=== PATIENT | male | born 1945 | race Caucasian/White ===

== ENCOUNTER 2019-09-19 05:53 | Inpatient (IN) ==
--- NOTE | 2019-08-23 12:09 | PAT Medication Instructions ---
Medication Instructions Date of Service August 23, 2019 Home Medications Vitamin D 1 tab PO QAM acetaminophen [Tylenol Extra Strength] 1,000 mg PO Q6H PRN aspirin [Aspir-81] 81 mg PO QPM calcium polycarbophil [Fiber-Tabs] 1,250 mg PO QPM cholecalciferol (vitamin D3) [Vitamin D3] 5,000 unit PO QAM citalopram [Celexa] 10 mg PO QAM cyclobenzaprine 10 mg PO HS dexlansoprazole [Dexilant] 60 mg PO QAM ibuprofen [Advil] 400 mg PO QID PRN losartan 100 mg PO QPM metoprolol succinate [Toprol XL] 25 mg PO QPM oxybutynin chloride 5 mg PO QAM rosuvastatin 20 mg PO QPM ASK your surgeon for instructions ibuprofen [Advil] 400 mg PO QID PRN DO NOT take the morning of surgery Vitamin D 1 tab PO QAM cholecalciferol (vitamin D3) [Vitamin D3] 5,000 unit PO QAM oxybutynin chloride 5 mg PO QAM Take morning of surgery With a small sip of water, OTHERWISE NOTHING TO EAT OR DRINK AFTER MIDNIGHT: acetaminophen [Tylenol Extra Strength] 1,000 mg PO Q6H PRN (okay to take up to 4 hours prior to surgery if needed) citalopram [Celexa] 10 mg PO QAM dexlansoprazole [Dexilant] 60 mg PO QAM Take evening before surgery acetaminophen [Tylenol Extra Strength] 1,000 mg PO Q6H PRN (if needed) aspirin [Aspir-81] 81 mg PO QPM calcium polycarbophil [Fiber-Tabs] 1,250 mg PO QPM cyclobenzaprine 10 mg PO HS losartan 100 mg PO QPM metoprolol succinate [Toprol XL] 25 mg PO QPM rosuvastatin 20 mg PO QPM Other Notes If you have any questions please call us at [phone] or [phone] or [phone] or [phone]
--- NOTE | 2019-08-24 10:27 | Anesthesiology Consultation ---
Date of Service August 24, 2019 Assessment & Plan (1) Encounter for pre-operative examination: - Awaiting review preop testing (labs, EKG, CXR). - Awaiting surgeon-ordered PCP preop evaluation scheduled 08/22 ([facility]). - Awaiting surgeon-ordered cardiology preop evaluation scheduled 09/05 ([facility]). Chart Review Chart Review: Patient seen in Pre Admission Testing Teaching & Discussion Pre-Anesthesia Teaching/Discussion Notes: Instructed NPO after midnight before surgery,except medications with 15 cc of water. Medication instructions provided according to the PAT guidelines. History Surgery Operation Date: 09/19/19 11:05 Proposed Procedures p Right Total Posterior Hip Arthroplasty - Pipo Drake, Height/Weight Height: 5 ft 8 in Weight: 124.4 kg Allergies Allergy/AdvReac Type Severity Reaction Status Date / Time amoxicillin Allergy Unknown HIVES, Verified 08/24/19 10:31 THROAT/TONGUE SWELLING atorvastatin [From Lipitor] AdvReac Unknown MUSCLE Verified 08/05/19 10:02 ACHES Medications Home Medications Medication Instructions Recorded Confirmed Last Taken Vitamin D 1 tab PO QAM 08/05/19 08/05/19 Unknown acetaminophen [Tylenol Extra 1,000 mg PO Q6H PRN 08/05/19 08/05/19 Unknown Strength] aspirin [Aspir-81] 81 mg PO QPM 08/05/19 08/05/19 Unknown calcium polycarbophil [Fiber-Tabs] 1,250 mg PO QPM 08/05/19 08/05/19 Unknown cholecalciferol (vitamin D3) 5,000 unit PO QAM 08/05/19 08/05/19 Unknown [Vitamin D3] citalopram [Celexa] 10 mg PO QAM 08/05/19 08/05/19 Unknown cyclobenzaprine 10 mg PO HS 08/05/19 08/05/19 Unknown dexlansoprazole [Dexilant] 60 mg PO QAM 08/05/19 08/05/19 Unknown ibuprofen [Advil] 400 mg PO QID PRN 08/05/19 08/05/19 Unknown losartan 100 mg PO QPM 08/05/19 08/05/19 Unknown metoprolol succinate [Toprol XL] 25 mg PO QPM 08/05/19 08/05/19 Unknown oxybutynin chloride 5 mg PO QAM 08/05/19 08/05/19 Unknown rosuvastatin 20 mg PO QPM 08/05/19 08/05/19 Unknown Past Medical History Medical History CAD (coronary artery disease) stents x 3 (2008) GERD (gastroesophageal reflux disease) controlled Hiatal hernia Hyperlipidemia Hypertension Morbid obesity Osteoarthritis Prostatitis HX Sciatica Exercise / Class Metabolic Activity III < 4 Walking/Shop/Light housework (uses cane PRN) Past Family History Family History Mother Family history of diabetes mellitus Father Family history of diabetes mellitus Past Surgical History Surgical History H/O foot surgery 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 Patient denies chest pain, shortness of breath, cough, wheezing, palpitations. Physical Exam Vital Signs VITALS BP 126/81 P 83 TEMP 97.9 SP02 93%RA RESP 18 PHYSICAL Full neck and c-spine range of motion. Full TMJ range of motion. TMD 3 finger breaths Mallampati Score 2 Dentition: several missing sides/molars, chipped teeth on upper front Lungs: clear throughout to auscultation Cardiac: regular rate and rhythm, no murmurs noted Spine: normal Carotid arteries: negative bruit Extremities: no edema Testing Laboratory Results 08/24/19 10:40 08/24/19 10:40 PT 10.3 Seconds (9.0-12.0) 08/24/19 10:40 INR 1.0 (0.9-1.1) 08/24/19 10:40 APTT 25.1 Seconds (21.0-31.0) 08/24/19 10:40 Hemoglobin A1c 7.1 % (4.5-5.6) H 08/24/19 10:40 Urine Color Dark Yellow 08/24/19 Unknown Urine Appearance Cloudy (Clear) A 08/24/19 Unknown Urine pH 5.0 (4.5-7.5) 08/24/19 Unknown Ur Specific [place] 1.023 (1.000-1.030) 08/24/19 Unknown Urine Protein Trace (Negative) H 08/24/19 Unknown Urine Glucose (UA) Negative (Negative) 08/24/19 Unknown Urine Ketones Trace (Negative) H 08/24/19 Unknown Urine Nitrite Negative (Negative) 08/24/19 Unknown Ur Leukocyte Esterase Negative (Negative) 08/24/19 Unknown Urine WBC (Auto) 1-5 /hpf (0-5) 08/24/19 Unknown Urine RBC (Auto) 5-10 /hpf (0-4) H 08/24/19 Unknown U Hyaline Cast (Auto) 1-5 /lpf (0-5) 08/24/19 Unknown U Epithel Cells (Auto) 20-30 /lpf (0-5) H 08/24/19 Unknown Urine Bacteria (Auto) Negative (Negative) 08/24/19 Unknown Blood Type O Positive 08/24/19 10:40 Antibody Screen NEGATIVE 08/24/19 10:40 Electrocardiogram Date: 08/24/19 Findings: + NSR @ (81/min)
--- NOTE | 2019-08-24 11:05 | XRay Report ---
XR chest Pre-admission PA/Lat CLINICAL HISTORY: Preoperative chest COMPARISON STUDY: No previous studies for comparison. FINDINGS: The heart is at the upper limits of normal in size. There are prominent cardiophrenic angle fat pads. There is no failure. There is no lobar consolidation. There are no large pleural effusions .[ IMPRESSION: No active disease in the chest. Electronically signed by: Camden Davey M.D. 08/24/2019 11:04 AM
[2019-08-24 12:05] LABS: Basophils # (auto) 0.06 K/uL (0-0.2); Basophils % (auto) 0.5 %; Eosinophils # (auto) 0.18 K/uL (0-0.5); Eosinophils % (auto) 1.6 %; Hemoglobin 16.1 g/dL (14.0-18.0); Immature Granulocytes # (auto) 0.14 K/uL (0.00-0.02); Immature Granulocytes % (auto) 1.2 %; Lymphocytes # (auto) 2.11 K/uL (1.2-3.4); Lymphocytes % (auto) 18.5 %; Mean Corpuscular Hemoglobin 30.7 pg (25-34); Mean Corpuscular Hgb Conc 34.3 g/dL (32-36); Mean Corpuscular Volume 89.5 fL (80-100); Mean Platelet Volume 9.9 fL (7.4-10.4); Monocytes # (auto) 0.97 K/uL (0.11-0.59); Monocytes % (auto) 8.5 %; Neutrophils # (auto) 7.95 K/uL (1.4-6.5); Neutrophils % (auto) 69.7 %; Platelet Count 257 K/uL (130-400); RDW Coefficient of Variation 14.5 % (11.5-14.5); RDW Standard Deviation 47.4 fL (36.4-46.3); Red Blood Count 5.25 M/uL (4.7-6.1); White Blood Count 11.41 K/uL (4.8-10.8)
[2019-08-24 12:10] LABS: Appearance Urine Cloudy (Clear); Bacteria Urine Automated Negative (Negative); Bilirubin Urine Negative (Negative); Blood Urine Negative (Negative); Color Urine Dark Yellow; Epithelial Cell Urine Auto 20-30 /lpf (0-5); Glucose Urine UA Negative (Negative); Ketones Urine Trace (Negative); Leukocyte Esterase Urine Negative (Negative); Nitrite Urine Negative (Negative); Protein Urine Trace (Negative); Specific Gravity Urine 1.023 (1.000-1.030); Urobilinogen Urine Negative (Negative)
[2019-08-24 12:13] LABS: Albumin Level 3.2 gm/dl (3.4-5.0); BUN Creatinine Ratio 15.3 (10-20); Calcium 9.6 mg/dl (8.5-10.1); Creatinine Clr Calc Pharmacy 67.6 ml/min; Est GFR (African American) 65.8; Est GFR (Non-African American) 56.8; Potassium 4.4 mmol/L (3.5-5.1)
[2019-08-24 12:22] LABS: Partial Thromboplastin Ratio 0.9; Partial Thromboplastin Time 25.1 Seconds (21.0-31.0); Prothrombin Time 10.3 Seconds (9.0-12.0)
[2019-08-24 12:49] LABS: Estimated Average Glucose 157 mg/dl; Hemoglobin A1C 7.1 % (4.5-5.6)
--- NOTE | 2019-08-25 09:38 | Anesthesiology Consultation ---
Date of Service August 25, 2019 History Surgery Operation Date: 09/19/19 11:05 Proposed Procedures p Right Total Posterior Hip Arthroplasty - Pipo Drake, Height/Weight Height: 5 ft 8 in Weight: 124.4 kg Allergies Allergy/AdvReac Type Severity Reaction Status Date / Time amoxicillin Allergy Unknown HIVES, Verified 08/24/19 10:31 THROAT/TONGUE SWELLING atorvastatin [From Lipitor] AdvReac Unknown MUSCLE Verified 08/05/19 10:02 ACHES Medications Home Medications Medication Instructions Recorded Confirmed Last Taken Vitamin D 1 tab PO QAM 08/05/19 08/05/19 Unknown acetaminophen [Tylenol Extra 1,000 mg PO Q6H PRN 08/05/19 08/05/19 Unknown Strength] aspirin [Aspir-81] 81 mg PO QPM 08/05/19 08/05/19 Unknown calcium polycarbophil [Fiber-Tabs] 1,250 mg PO QPM 08/05/19 08/05/19 Unknown cholecalciferol (vitamin D3) 5,000 unit PO QAM 08/05/19 08/05/19 Unknown [Vitamin D3] citalopram [Celexa] 10 mg PO QAM 08/05/19 08/05/19 Unknown cyclobenzaprine 10 mg PO HS 08/05/19 08/05/19 Unknown dexlansoprazole [Dexilant] 60 mg PO QAM 08/05/19 08/05/19 Unknown ibuprofen [Advil] 400 mg PO QID PRN 08/05/19 08/05/19 Unknown losartan 100 mg PO QPM 08/05/19 08/05/19 Unknown metoprolol succinate [Toprol XL] 25 mg PO QPM 08/05/19 08/05/19 Unknown oxybutynin chloride 5 mg PO QAM 08/05/19 08/05/19 Unknown rosuvastatin 20 mg PO QPM 08/05/19 08/05/19 Unknown Past Medical History Medical History CAD (coronary artery disease) stents x 3 (2008) GERD (gastroesophageal reflux disease) controlled Hiatal hernia Hyperlipidemia Hypertension Morbid obesity Osteoarthritis Prostatitis HX Sciatica Past Family History Family History Mother Family history of diabetes mellitus Father Family history of diabetes mellitus Past Surgical History Surgical History H/O foot surgery 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 H/O knee surgery OPEN LEFT KNEE History of cardiac cath 2009= 3 STENTS 2016= NO STENTS History of cholecystectomy History of colonoscopy History of esophagogastroduodenoscopy (EGD) Social History Smoking Status: Never smoker Do You Dip or Chew Tobacco: No Hx Alcohol Use: No Hx Substance Use: No Testing Laboratory Results 08/24/19 10:40 08/24/19 10:40 PT 10.3 Seconds (9.0-12.0) 08/24/19 10:40 INR 1.0 (0.9-1.1) 08/24/19 10:40 APTT 25.1 Seconds (21.0-31.0) 08/24/19 10:40 Hemoglobin A1c 7.1 % (4.5-5.6) H 08/24/19 10:40 Urine Color Dark Yellow 08/24/19 Unknown Urine Appearance Cloudy (Clear) A 08/24/19 Unknown Urine pH 5.0 (4.5-7.5) 08/24/19 Unknown Ur Specific [place] 1.023 (1.000-1.030) 08/24/19 Unknown Urine Protein Trace (Negative) H 08/24/19 Unknown Urine Glucose (UA) Negative (Negative) 08/24/19 Unknown Urine Ketones Trace (Negative) H 08/24/19 Unknown Urine Nitrite Negative (Negative) 08/24/19 Unknown Ur Leukocyte Esterase Negative (Negative) 08/24/19 Unknown Urine WBC (Auto) 1-5 /hpf (0-5) 08/24/19 Unknown Urine RBC (Auto) 5-10 /hpf (0-4) H 08/24/19 Unknown U Hyaline Cast (Auto) 1-5 /lpf (0-5) 08/24/19 Unknown U Epithel Cells (Auto) 20-30 /lpf (0-5) H 08/24/19 Unknown Urine Bacteria (Auto) Negative (Negative) 08/24/19 Unknown Blood Type O Positive 08/24/19 10:40 Antibody Screen NEGATIVE 08/24/19 10:40 Chest X-Ray Date: 08/24/19 Findings: + NAD
--- NOTE | 2019-08-25 09:44 | Anesthesiology Consultation ---
Date of Service August 25, 2019 History Surgery Operation Date: 09/19/19 11:05 Proposed Procedures p Right Total Posterior Hip Arthroplasty - Pipo Drake, Height/Weight Height: 5 ft 8 in Weight: 124.4 kg Allergies Allergy/AdvReac Type Severity Reaction Status Date / Time amoxicillin Allergy Unknown HIVES, Verified 08/24/19 10:31 THROAT/TONGUE SWELLING atorvastatin [From Lipitor] AdvReac Unknown MUSCLE Verified 08/05/19 10:02 ACHES Medications Home Medications Medication Instructions Recorded Confirmed Last Taken Vitamin D 1 tab PO QAM 08/05/19 08/05/19 Unknown acetaminophen [Tylenol Extra 1,000 mg PO Q6H PRN 08/05/19 08/05/19 Unknown Strength] aspirin [Aspir-81] 81 mg PO QPM 08/05/19 08/05/19 Unknown calcium polycarbophil [Fiber-Tabs] 1,250 mg PO QPM 08/05/19 08/05/19 Unknown cholecalciferol (vitamin D3) 5,000 unit PO QAM 08/05/19 08/05/19 Unknown [Vitamin D3] citalopram [Celexa] 10 mg PO QAM 08/05/19 08/05/19 Unknown cyclobenzaprine 10 mg PO HS 08/05/19 08/05/19 Unknown dexlansoprazole [Dexilant] 60 mg PO QAM 08/05/19 08/05/19 Unknown ibuprofen [Advil] 400 mg PO QID PRN 08/05/19 08/05/19 Unknown losartan 100 mg PO QPM 08/05/19 08/05/19 Unknown metoprolol succinate [Toprol XL] 25 mg PO QPM 08/05/19 08/05/19 Unknown oxybutynin chloride 5 mg PO QAM 08/05/19 08/05/19 Unknown rosuvastatin 20 mg PO QPM 08/05/19 08/05/19 Unknown Past Medical History Medical History CAD (coronary artery disease) stents x 3 (2008) GERD (gastroesophageal reflux disease) controlled Hiatal hernia Hyperlipidemia Hypertension Morbid obesity Osteoarthritis Prostatitis HX Sciatica Past Family History Family History Mother Family history of diabetes mellitus Father Family history of diabetes mellitus Past Surgical History Surgical History H/O foot surgery 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 H/O knee surgery OPEN LEFT KNEE History of cardiac cath 2009= 3 STENTS 2016= NO STENTS History of cholecystectomy History of colonoscopy History of esophagogastroduodenoscopy (EGD) Social History Smoking Status: Never smoker Do You Dip or Chew Tobacco: No Hx Alcohol Use: No Hx Substance Use: No Testing Laboratory Results 08/24/19 10:40 08/24/19 10:40 PT 10.3 Seconds (9.0-12.0) 08/24/19 10:40 INR 1.0 (0.9-1.1) 08/24/19 10:40 APTT 25.1 Seconds (21.0-31.0) 08/24/19 10:40 Hemoglobin A1c 7.1 % (4.5-5.6) H 08/24/19 10:40 Urine Color Dark Yellow 08/24/19 Unknown Urine Appearance Cloudy (Clear) A 08/24/19 Unknown Urine pH 5.0 (4.5-7.5) 08/24/19 Unknown Ur Specific [place] 1.023 (1.000-1.030) 08/24/19 Unknown Urine Protein Trace (Negative) H 08/24/19 Unknown Urine Glucose (UA) Negative (Negative) 08/24/19 Unknown Urine Ketones Trace (Negative) H 08/24/19 Unknown Urine Nitrite Negative (Negative) 08/24/19 Unknown Ur Leukocyte Esterase Negative (Negative) 08/24/19 Unknown Urine WBC (Auto) 1-5 /hpf (0-5) 08/24/19 Unknown Urine RBC (Auto) 5-10 /hpf (0-4) H 08/24/19 Unknown U Hyaline Cast (Auto) 1-5 /lpf (0-5) 08/24/19 Unknown U Epithel Cells (Auto) 20-30 /lpf (0-5) H 08/24/19 Unknown Urine Bacteria (Auto) Negative (Negative) 08/24/19 Unknown Blood Type O Positive 08/24/19 10:40 Antibody Screen NEGATIVE 08/24/19 10:40 Electrocardiogram Date: 08/24/19 Findings: + NSR @ (81/min) Chest X-Ray Date: 08/24/19 Findings: + NAD
--- NOTE | 2019-09-18 10:23 | History & Physical Report ---
Date of Service September 18, 2019 Assessment & Plan (1) Degenerative joint disease of right hip: I have indicated the patient for right total hip replacement. The risks, benefits and complications of surgery were explained to the patient which include but not limited to infection, acute blood loss, DVT/PE, injury to nerves, vessels, bone, soft tissue, arthrofibrosis, chronic pain, failure of the prosthesis, hip dislocation, leg length discrepancy, need for additional surgery, cardiac and pulmonary events and . The patient wished to proceed with surgery and informed consent was obtained at this time. We will plan for 81mg ASA BID post-operatively for DVT prophylaxis. Upon discharge the patient will be discharged home with home health services. Appropriate clearances by PCP, cardiology were obtained. Patient is asymptomatic for UTI. History of Present Illness Chief Complaint: Right hip pain/djd Primary Care Provider: Chelsea Nash DO The patient is a 71 year old male who presents with complaints of severe right hip pain and DJD. The patient has failed outpatient conservative treatments to this point which included NSAIDs, IA corticosteroid injection, home exercise, walking program. The patient's pain and limited function have progressed to the point where they severely hinder their activities of daily living and they no longer tolerate exercise programs. They are requesting to proceed with total hip replacement surgery. Allergies Allergy/AdvReac Type Severity Reaction Status Date / Time amoxicillin Allergy Unknown HIVES, Verified 09/19/19 06:18 THROAT/TONGUE SWELLING atorvastatin [From Lipitor] AdvReac Unknown MUSCLE Verified 09/19/19 06:18 ACHES Home Medications Home Medications Medication Instructions Recorded Confirmed Type Vitamin D 1 tab PO QAM 08/05/19 09/19/19 History acetaminophen [Tylenol Extra 1,000 mg PO Q6H PRN 08/05/19 09/19/19 History Strength] aspirin [Aspir-81] 81 mg PO QPM 08/05/19 09/19/19 History calcium polycarbophil [Fiber-Tabs] 1,250 mg PO QPM 08/05/19 09/19/19 History cholecalciferol (vitamin D3) 5,000 unit PO QAM 08/05/19 09/19/19 History [Vitamin D3] citalopram [Celexa] 10 mg PO QAM 08/05/19 09/19/19 History cyclobenzaprine 10 mg PO HS 08/05/19 09/19/19 History dexlansoprazole [Dexilant] 60 mg PO QAM 08/05/19 09/19/19 History ibuprofen [Advil] 400 mg PO QID PRN 08/05/19 09/19/19 History losartan 100 mg PO QPM 08/05/19 09/19/19 History metoprolol succinate [Toprol XL] 25 mg PO QPM 08/05/19 09/19/19 History oxybutynin chloride 5 mg PO QAM 08/05/19 09/19/19 History rosuvastatin 20 mg PO QPM 08/05/19 09/19/19 History Past Med/Surg History Family History Mother Family history of diabetes mellitus Father Family history of diabetes mellitus Social History Preferred Language: Tongan Communication Ability: Effective Heel Blacker Required: No Beliefs That Will Affect Care: None Current Living Situation: Spouse Other Information That Helps Us Care for You: No Feels Safe at Home: Yes Safety Concerns: Feels Safe At This Time Smoking Status: Never smoker Do You Dip or Chew Tobacco: No ; Second Hand Exposure: No ; Hx Alcohol Use: No Hx Substance Use: No Review of Systems Review of Systems: All systems reviewed & are unremarkable except as noted in HPI & below Constitutional: as per Subjective / HPI Physical Exam Physical Exam: RLE NVSI +EHL/FHL/TA/GS SILT grossly, +2 DP pulse, compartments soft NT, painful limited ROM of the hip, antalgic gait. Constitutional: WD/WN, vitals as above Eyes: PERRL, conjunctivae normal, anicteric sclerae ENMT: external ear and nose normal, oropharynx normal Neck: trachea midline, no thyromegaly Respiratory: normal respiratory effort, lungs clear to auscultation Cardiovascular: RRR, no murmur, no edema Gastrointestinal (Abdomen): normal bowel sounds, soft, nontender, no hepatosplenomegaly Musculoskeletal: no cyanosis or clubbing, extremities motor strength 5/5 Skin: no rashes, warm and dry Neurologic: patellar DTR's 2+ bilat, sensation intact Psychiatric: A+Ox3, euthymic affect Lymphatic: no cervical or axillary lymphadenopathy Results & Data Diagnostic Findings Multiple views of the hip demonstrates severe DJD with complete loss of the joint space. +osteophytes, +sclerosis, +subchondral cysts.
[2019-09-19] MEDS ORDERED: METOCLOPRAMIDE HCL 10 MG TABLET PO SCH (06:00)
[2019-09-19] MEDS ORDERED: CeleBREX 200 MG CAP PO SCH (06:00)
[2019-09-19] MEDS ORDERED: CLINDAMYCIN 600 MG/54 ML BAG IV SCH (06:00)
[2019-09-19] MEDS ORDERED: ACETAMINOPHEN 500 MG TAB PO SCH (06:00)
[2019-09-19] MEDS ORDERED: dexAMETHasone 4 MG TAB PO SCH (06:00)
[2019-09-19] MEDS ORDERED: LR 500ML BOLUS IV SCH (06:00)
[2019-09-19] MEDS ORDERED: FAMOTIDINE 20 MG TAB PO SCH (06:00)
[2019-09-19] MEDS ORDERED: GABAPENTIN 300 MG CAP PO SCH (06:00)
[2019-09-19] MEDS ORDERED: ROPIVACAINE 0.5% HCL/PF 150 MG, BUPIVACAINE 0.5% MPF 30 ML, EPINEPHrine 30MG/30ML (OR U... INSTIL SCH (06:00)
[2019-09-19] MEDS ORDERED: TRANEXAMIC ACID 1,000 MG **IV Pre-op IV SCH (06:00)
[2019-09-19] MEDS ORDERED: LR 60ML/HR IV SCH (06:00)
[2019-09-19] MEDS ORDERED: TRANEXAMIC ACID 1,000 MG **IV Intra-op IV SCH (06:30)
[2019-09-19] MEDS ORDERED: BUPIVACAINE 0.5 % 5 MG/1 ML PF 10ML VIAL ONE (06:39)
--- NOTE | 2019-09-19 07:09 | History & Physical Bridge Note ---
Date of Service September 19, 2019 History & Physical Bridge Note I have examined the patient, reviewed the History & Physical and in the interval since the performance of the History & Physical I have noted the following changes of clinical significance: no changes noted
[2019-09-19] MEDS ORDERED: ePHEDrine sulfate 50 MG/ML AMP IV PRN (08:45)
[2019-09-19] MEDS ORDERED: ATROPINE SULFATE 0.1 MG/ML 10ML SYR IV PRN (08:45)
[2019-09-19] MEDS ORDERED: ONDANSETRON INJ 2 MG/ML 2 ML VIAL IV PRN ×2 (08:45→14:07)
[2019-09-19] MEDS ORDERED: fentaNYL citrate 100 MCG/2 ML VIAL IV PRN (08:45)
[2019-09-19] MEDS ORDERED: MIDAZOLAM HCL 1 MG/ML 2ML VIAL ONE ×2 (09:23→09:26)
[2019-09-19] MEDS ORDERED: fentaNYL citrate 100 MCG/2 ML VIAL ONE (09:25)
[2019-09-19] MEDS ORDERED: BACITRACIN INJ 50,000 UNIT VIAL ONE (10:06)
[2019-09-19] MEDS ORDERED: ORTHO JOINT ANESTHETIC ONE (10:06)
[2019-09-19] MEDS ORDERED: PROPOFOL IV EMULSION 10 MG/ML 20 ML VIAL IV ONE (11:15)
--- NOTE | 2019-09-19 12:28 | Post Operative Brief Note ---
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 I was immediately available: during the entire case. Back up surgeon: was not required during procedure.
--- NOTE | 2019-09-19 12:49 | Operative Report ---
Post Operative Report Pre & Post Diagnosis Operation Date: 09/19/19 09:00 Pre-Op Diagnosis: Degenerative joint disease of right hip Post-Op Diagnosis: Degenerative joint disease of right hip I identified the patient and participated in the time-out.: Yes Procedure Operation Date: 09/19/19 09:00 Actual Procedures p Right Posterior Total Hip Arthroplasty(Right) - Pipo Drake DO Surgeon Pipo Drake DO Carpet Installer Gilmar Tejada Estimated Blood Loss 175 Findings Consistent with Post-Op Diagnosis Fluids 2000 cc LR Specimens Femoral head Anesthesia Type Spinal MAC Complications none Disposition Disposition: Recovery Room Indications The patient is a 74-year-old male who presents with severe progressive right hip DJD who has failed outpatient conservative treatments. I indicated the patient for a total hip replacement and the risks and benefits were explained in detail which included but not limited to infection, bleeding, blood clot, damage to surrounding bone, nerves, vessels, soft tissue, hip dislocation, failure of the prosthesis, leg length discrepancy, need for additional surgery and . The patient agreed to proceed with replacement of the hip and informed consent was obtained. Appropriate clearances were obtained. Description of Procedure COMPONENTS USED: Annalisa Biomet hip system: Acetabulum size 52, femur size 10 reduced extended offset, femoral head +0, liner 5236 high wall, acetabular screw 35 mm x 1. Following induction of adequate spinal anesthesia, the patient was transferred to the OR table and placed in lateral decubitus position with left hip down. The right hip was prepped and draped in the typical sterile fashion. A timeout was performed, patient identified and site matt confirmed. Appropriate antibiotics were given. A standard posterolateral/Stephany-Langenbeck incision was made. Subcutaneous tissue was sharply dissected. Electrocautery was utilized for hemostasis. The fascia was incised throughout the length of the wound and retracted with the Charnley retractor. The bursa was taken down and the short external rotators were identified. The piriformis was tagged with #1 Vicryl. The short external rotators and capsule were divided from the posterior aspect of the femur using electrocautery. The posterior capsule was tagged with #1 Vicryl. Both external rotators and posterior capsule were swept posterior and protected, along with protecting the sciatic nerve. The hip was dislocated by flexion and internally rotation in a controlled manner and exposure of the femoral neck was gained with an old-style Hohmann and a blunt cobra retractor. A femoral cutting guide was utilized for making the appropriate level femoral neck cut with reciprocating saw. The femoral head was removed, measured and reserved on the back table. Next, attention was turned to the acetabulum. A posterior and anterior offset retractor was placed to gain adequate exposure. Acetabular labrum as well as posterior capsule elements were removed using electrocautery and forceps. Fovea centralis was cleared of all soft tissue. Sequential reaming was performed starting at 46 mm and carried up to a 51 mm and decision was made to proceed with impaction of a 50 to mm G7 osteo-ti metal cup. This was impacted and held using a single 35 mm bone screw. The trial ac etabular liner was placed at this time. Next, attention was turned to the proximal femur where a Bovie and pickup was used to further clear short external rotators from their insertion on the femur. Box osteotome and canal finder was used to gain access to the femoral canal and the lateral reamer on power was used to further open the proximal lateral canal. Sequentially rasping was carried up to a 10 which gave good fit and fill of the proximal femur. A trial reduction was carried out with a reduced extended offset femoral neck component a 36+0 mm femoral head. The trial reduction was stable in all degrees of rotation with no [id number] impingement. The hip was dislocated, trial components were removed and access to the acetabulum was re-established. The trial liner was removed and the cup was irrigated to ensure all debris was removed. The final acetabular liner was inserted and properly seated in the cup. Access to the femur was once more gained and the size 10 femoral stem with reduced extended offset was impacted into position. The hip was once more assessed with the 36 +0 mm femoral head. Stability was accessed and found to be excellent with equal leg lengths. The hip was dislocated for the last time and the final 36+0 ceramic femoral head was impacted in place and the hip was reduced. Range of motion was checked once again and found to be stable. A Betadine soak was performed. After 3 minutes, the hip was once more irrigated with copious sterile saline solution with bacitracin. The monae-incisional soft tissue was injected utilizing [place] ortho mix which includes a combination of Ropivicaine 0.5% 150mg, Bupivicaine 0.5%/Epinephrine 1:200,000 30ml, Toradol 30mg, Dexamethasone 4mg, Ketamine 10mg, Clonidine 100mcg and NSS 30ml Orthomix solution. The piriformis, external rotators and capsule were repaired to the greater trochanter through bone tunnels using #5 FiberWire. The fascia was closed using #1 Vicryl, subcutaneous tissue was closed using 2-0 Vicryl, and skin was closed with trini. Sterile dressings were applied which included Silverlon. The patient tolerated the procedure well and was transported to PACU in stable condition. Due to the complex nature of the procedure, the entire surgery was performed with the operational assistance of Gilmar Tejada PA-C. The assistant merchandise manager, under direct supervision, was involved in the actual performance of all aspects of the surgical procedure including patient positioning, hemostasis, tissue retraction, instrument management and wound closure. I attest to the content of the Intraoperative Record and any orders documented therein. Any exceptions are noted below.
--- NOTE | 2019-09-19 13:12 | Orthopedic Progress Note ---
Date of Service September 19, 2019 Assessment & Plan (1) Degenerative joint disease of right hip: Status post right total hip arthroplasty -Clinda x24 -DVT prophylaxis: SCDs, teds, 81 mg ASA twice daily -Weight-bear as tolerates right lower extremity -Posterior hip precaution -PT/OT -Postoperative x-ray demonstrates a well aligned well fixed orthopedic prosthesis without evidence of fracture or dislocation. -A.m. labs -DC planning Subjective Post Operative Progress Note Patient seen in PACU, comfortable, denies complaints, pain well controlled, no acute issues. Still feeling the effects of spinal anesthesia. Review of Systems Review of Systems: All systems reviewed & are unremarkable except as noted in HPI & below Constitutional: as per Subjective / HPI Physical Exam Physical Exam: Right lower extremity physical exam limited secondary to spinal anesthesia, +2 dorsalis pedis pulse, compartment soft nontender, dressing clean dry and intact, abduction pillow in place. Constitutional: WD/WN, vitals as above Results & Data Vital Signs (Past 12 Hours) Vital Signs Temp Pulse Pulse Resp BP Pulse Ox 09/19/19 13:05 76 20 124/72 94 09/19/19 12:55 78 22 119/63 96 09/19/19 12:45 76 20 114/63 95 09/19/19 12:36 36.1 C L 80 22 172/54 H 92 09/19/19 06:25 36.4 C L 78 18 150/74 H 95 09/19/19 06:19 36.4 C L 78 18 150/74 H 95
--- NOTE | 2019-09-19 13:16 | XRay Report ---
XR hip 1V RT w pelvis HISTORY: 74 years-old Male IN PACU - A/P PELVIS and LATERAL HIP right hip total joint arthroplasty COMPARISON: None available TECHNIQUE: AP view of the pelvis with crosstable lateral view of the right hip FINDINGS: Right hip total joint arthroplasty demonstrates satisfactory alignment. Lateral skin trini are note d along with expected postsurgical soft tissue swelling and deep tissue air. No acute fracture or ret ained foreign body. Moderate left hip posterior arthritis. IMPRESSION: Satisfactory alignment of the right hip total joint arthroplasty. The above report was generated using voice recognition software. It may contain grammatical, syntax o r spelling errors. Electronically signed by: Ashutosh Kenney M.D. 09/19/2019 1:14 PM
--- NOTE | 2019-09-19 13:51 | Anesthesiology Progress Note ---
Date of Service September 19, 2019 Anesthesia Post Procedure Vital Signs Vital Signs: Temp Pulse Pulse Resp BP Pulse Ox 09/19/19 13:45 76 16 113/71 94 09/19/19 13:30 37.0 C 74 24 122/69 94 09/19/19 13:15 74 22 120/72 94 09/19/19 13:05 76 20 124/72 94 09/19/19 12:55 78 22 119/63 96 09/19/19 12:45 76 20 114/63 95 09/19/19 12:36 36.1 C L 80 22 172/54 H 92 09/19/19 06:25 36.4 C L 78 18 150/74 H 95 09/19/19 06:19 36.4 C L 78 18 150/74 H 95 Pain Intensity Right Hip: Pain Intensity: 8 Transfer of Care Handoff Completed per policy Notes Mental Status: alert / awake / arousable Patient Amnestic to Procedure: Yes Nausea / Vomiting: adequately controlled Pain: adequately controlled Airway Patency, RR, SpO2: stable & adequate BP & HR: stable & adequate Hydration State: stable & adequate Neuraxial Anesthesia: was administered and sensory block is resolving Anesthetic Complications: no major complications apparent and Pt Satisfied with anesthetic care
[2019-09-19] MEDS ORDERED: BISACODYL 10 MG SUPP PR PRN (14:07)
[2019-09-19] MEDS ORDERED: NALOXONE HCL 0.4 MG/1 ML VIAL/CARP IV PRN (14:07)
[2019-09-19] MEDS ORDERED: METOCLOPRAMIDE HCL INJ 5 MG/ML 2 ML VIAL IV PRN (14:07)
[2019-09-19] MEDS ORDERED: HYDROmorphone INJ 0.5 MG/0.5 ML SYR IV PRN (14:07)
[2019-09-19] MEDS ORDERED: MAGNESIUM HYDROXIDE SUSP 30 ML UDC PO PRN (14:07)
[2019-09-19] MEDS: ACETAMINOPHEN 500 MG TAB PO SCH ×2 (16:39→21:17)
[2019-09-19] MEDS: SODIUM CHLORIDE 0.9% 1000ML 1,000 ML IV SCH ×2 (17:59→19:44)
[2019-09-19] MEDS: CLINDAMYCIN 600 MG in DEXTROSE 5% 50 ML IV SCH (18:27)
[2019-09-19] MEDS: DOCUSATE SODIUM 100 MG CAP PO SCH (20:12)
[2019-09-19] MEDS ORDERED: CYCLOBENZAPRINE HCL 10 MG TAB PO SCH (21:00)
[2019-09-19] MEDS ORDERED: LOSARTAN POTASSIUM 50 MG TAB PO SCH (21:00)
[2019-09-19] MEDS ORDERED: SENNA 8.6 MG TAB PO SCH (21:00)
[2019-09-19] MEDS ORDERED: ROSUVASTATIN CALCIUM 20 MG TAB PO SCH (21:00)
[2019-09-19] MEDS ORDERED: METOPROLOL SUCC 25MG EXT REL TAB PO SCH (21:00)
[2019-09-20] MEDS: OXYCODONE HCL IR 5 MG TAB (IMMEDIATE RELEASE) PO PRN ×2 (00:09→11:51)
[2019-09-20] MEDS: CLINDAMYCIN 600 MG in DEXTROSE 5% 50 ML IV SCH (02:44)
[2019-09-20] MEDS: ACETAMINOPHEN 500 MG TAB PO SCH (05:29)
[2019-09-20 05:55] LABS: Hematocrit (blood only) 37.2 % (42-52); Hemoglobin 12.4 g/dL (14.0-18.0); Immature Granulocytes # (auto) 0.08 K/uL (0.00-0.02); Immature Granulocytes % (auto) 0.4 %; Lymphocytes # (auto) 1.59 K/uL (1.2-3.4); Lymphocytes % (auto) 8.2 %; Mean Corpuscular Hemoglobin 29.3 pg (25-34); Mean Corpuscular Hgb Conc 33.3 g/dL (32-36); Mean Corpuscular Volume 87.9 fL (80-100); Mean Platelet Volume 9.5 fL (7.4-10.4); Monocytes # (auto) 1.32 K/uL (0.11-0.59); Monocytes % (auto) 6.8 %; Neutrophils # (auto) 16.33 K/uL (1.4-6.5); Neutrophils % (auto) 84.6 %; Platelet Count 214 K/uL (130-400); RDW Coefficient of Variation 13.9 % (11.5-14.5); Red Blood Count 4.23 M/uL (4.7-6.1); White Blood Count 19.32 K/uL (4.8-10.8)
[2019-09-20 06:33] LABS: BUN Creatinine Ratio 21.8 (10-20); Calcium 8.4 mg/dl (8.5-10.1); Est GFR (African American) 87.2; Est GFR (Non-African American) 75.2; Potassium 4.2 mmol/L (3.5-5.1)
--- NOTE | 2019-09-20 08:13 | Anesthesiology Progress Note ---
Date of Service September 20, 2019 Anesthesia Post Procedure Vital Signs Vital Signs: Temp Pulse Pulse Resp BP Pulse Ox 09/20/19 07:45 36.3 C L 76 18 124/72 96 09/20/19 03:10 36.6 C 80 18 119/69 93 09/19/19 23:50 36.5 C 78 18 119/69 93 09/19/19 20:11 36.4 C L 79 18 129/67 93 09/19/19 16:53 36.5 C 80 17 113/66 94 09/19/19 15:57 36.5 C 82 17 118/69 95 09/19/19 14:45 36.7 C 81 16 145/81 H 97 09/19/19 13:50 36.7 C 76 16 120/82 96 09/19/19 13:45 76 16 113/71 94 09/19/19 13:30 37.0 C 74 24 122/69 94 09/19/19 13:15 74 22 120/72 94 09/19/19 13:05 76 20 124/72 94 09/19/19 12:55 78 22 119/63 96 09/19/19 12:45 76 20 114/63 95 09/19/19 12:36 36.1 C L 80 22 172/54 H 92 Pain Intensity Right Hip: Pain Intensity: 8 Notes Mental Status: alert / awake / arousable and participated in evaluation Patient Amnestic to Procedure: Yes Nausea / Vomiting: adequately controlled Pain: adequately controlled Airway Patency, RR, SpO2: stable & adequate BP & HR: stable & adequate Hydration State: stable & adequate Neuraxial Anesthesia: was administered and sensory block resolved Anesthetic Complications: no major complications apparent and Pt Satisfied with anesthetic care
[2019-09-20] MEDS: DOCUSATE SODIUM 100 MG CAP PO SCH (08:54)
[2019-09-20] MEDS ORDERED: PANTOprazole 40 MG TAB PO SCH (09:00)
[2019-09-20] MEDS ORDERED: ASPIRIN 81 MG ECTAB PO SCH (09:00)
[2019-09-20] MEDS ORDERED: MULTIVITAMIN TAB PO SCH (09:00)
[2019-09-20] MEDS ORDERED: CITALOPRAM 20 MG TAB PO SCH (09:00)
[2019-09-20] MEDS ORDERED: OXYBUTYNIN CHLORIDE 5 MG TAB PO SCH (09:00)
--- NOTE | 2019-09-20 09:22 | Orthopedic Progress Note ---
Date of Service September 20, 2019 Assessment & Plan (1) Degenerative joint disease of right hip: Status post right total hip arthroplasty Postoperative day #1 -Clinda x24 -DVT prophylaxis: SCDs, teds, 81 mg ASA twice daily -Weight-bear as tolerates right lower extremity -Posterior hip precaution -PT/OT -Postoperative x-ray demonstrates a well aligned well fixed orthopedic prosthesis without evidence of fracture or dislocation. -A.m. labs - hgb 12.4 -DC planning -Home with home health Subjective Post Operative Progress Note Patient seen sitting up in bed, comfortable, denies complaints, pain well controlled, no acute issues. Denies fevers, chills, nausea, vomiting, shortness of breath or chest pain. Review of Systems Review of Systems: All systems reviewed & are unremarkable except as noted in HPI & below Constitutional: as per Subjective / HPI Physical Exam Physical Exam: RLE NVSI +EHL/FHL/TA/GS SILT grossly, +2 DP pulse, compartments soft NT, dressing cdi. Constitutional: WD/WN, vitals as above Results & Data Vital Signs (Past 12 Hours) Vital Signs Temp Pulse Resp BP Pulse Ox 09/20/19 07:45 36.3 C L 76 18 124/72 96 09/20/19 03:10 36.6 C 80 18 119/69 93 09/19/19 23:50 36.5 C 78 18 119/69 93
--- NOTE | 2019-09-24 18:59 | Discharge Summary ---
Date of Service September 24, 2019 Admission HPI Per Admitting Provider The patient is a 71 year old male who presents with complaints of severe right hip pain and DJD. The patient has failed outpatient conservative treatments to this point which included NSAIDs, IA corticosteroid injection, home exercise, walking program. The patient's pain and limited function have progressed to the point where they severely hinder their activities of daily living and they no longer tolerate exercise programs. They are requesting to proceed with total hip replacement surgery. Principal Diagnosis Right total hip replacement Discharge Exam RLE NVSI +EHL/FHL/TA/GS SILT grossly, +2 DP pulse, compartments soft NT, dressing cdi. Constitutional WD/WN, vitals as above Discharge Data Allergies Allergy/AdvReac Type Severity Reaction Status Date / Time amoxicillin Allergy Unknown HIVES, Verified 09/19/19 06:18 THROAT/TONGUE SWELLING atorvastatin [From Lipitor] AdvReac Unknown MUSCLE Verified 09/19/19 06:18 ACHES Consultations 09/20/19 08:00 Consult Case Management - Discharge Planning Routine Procedures Performed Operation Date: 09/19/19 09:00 Actual Procedures p Right Posterior Total Hip Arthroplasty(Right) - Pipo Drake DO [facility] Course (1) Degenerative joint disease of right hip: The patient is a 74 -year-old male who presents with long standing history of severe right hip DJD and failed outpatient conservative treatments. The patient's symptoms have progressed to the point where it has been difficult to perform even normal activities of daily living. I indicated the patient for a right total hip arthroplasty, the risks, benefits and complications of the procedure include but not limited to infection, bleeding, damage to bone, nerves, vessels, surrounding soft tissue, may develop blood clots, loss of function, leg length discrepancy, dislocation, failure of the components, loosening of the components, the need for additional surgery and . The patient wished to proceed with surgery at this time and informed consent was obtained. Hospital Course: On 09/19/19 the patient was taken to the operating room, adequate anesthesia administered and underwent a right total hip arthroplasty. The patient tolerated the procedure well and was taken to the PACU in stable condition. Post-operatively the patient was started on a DVT ppx medication and given appropriate IV antibiotics. Consults were placed to physical therapy, occupational therapy and case management. On POD#1, the patient did well overnight and their pain was well controlled. Labs were drawn and the Hgb was 12.4. The patient progressed well with PT. Dressings were changed at this time and the incision was clean, dry and intact. The patients hospital stay was relatively uneventful and they were deemed stable by the orthopedic team and consultants to be discharged home with on 09/20/19. Discharge Instructions: Upon discharge the patient may weight bear as tolerates through their operative extremity. They were instructed to keep the incision clean and dry at all times. The patient may shower but should not submerge the incision, avoid bathing, pools and hot tubes. The patient was given a script for pain medication and should take as instructed. The patient was given a script for DVT ppx 81mg ASA BID and should take as directed. The patient was instructed to not drive or travel for long distances until cleared to do so. If the patient develops any symptoms of fevers, chills, nausea, vomiting, increased redness, swelling, pain or drainage from the surgical site, they should notify the office and/or proceed to the nearest emergency room. The patient should follow up in 10-14 days after surgery for their routine post-operative follow-up appointment and should call the office to confirm the date and time. Status post right total hip arthroplasty Postoperative day #1 -Clinda x24 -DVT prophylaxis: SCDs, teds, 81 mg ASA twice daily -Weight-bear as tolerates right lower extremity -Posterior hip precaution -PT/OT -Postoperative x-ray demonstrates a well aligned well fixed orthopedic prosthesis without evidence of fracture or dislocation. -A.m. labs - hgb 12.4 -DC planning -Home with home health Total Time Total Time Spent Total Time Spent (In Minutes): 30 minutes Total Time Includes: Examination of the Patient, Discharge Planning, Medication Reconciliation and Communication With Other Providers Discharge Plan Discharge Items Patient Disposition: Home - Home Health Services Reason For Visit: Unilateral Osteoarthritis, Right Hip Discharge Diagnosis: Right total hip replacement Condition on Discharge: Good Activity: Per Instructions section Lifting: Wait until after follow-up appointment Bathing: Keep incision dry Bathing Comment: No bathing, pools or hot tubs. Sexual Activity: Wait until after follow-up appointment Exercise/Sports: Wait until after follow-up appointment Driving/Machine Use: No driving. Weightbearing: Full weightbearing Non-emergency contact: Primary Care Provider and Surgeon Call non-emergency contact if: you have any medication questions, your symptoms worsen, your pain is not controlled, your pain is worsening, your pain is unusual for you, your pain is concerning for you, you have a fever, your temperature is above 101, your wound has increased redness, your wound has increased drainage and your wound pain has increased Follow-up/Referrals: Chelsea Nash, [Primary Care Provider] - Diet: Regular Addtl Attending Provider Instructions: ACTIVITY RECOMMENDATIONS: SELF CARE INSTRUCTIONS AFTER TOTAL HIP REPLACEMENT Until the incision and soft tissues around your hip have healed, there is a possibility that the hip prosthesis could dislocate. A. Observe the following precautions to prevent dislocation: 1. Don't bend your hip greater than 90 degrees. 2. Avoid crossing your legs or ankles while standing or lying. 3. Sit with your feet placed 6 inches apart. 4. When sitting, keep your knees below your hips. Sit on a firm surface, avoid deep, soft chairs and couches. Use an elevated toilet seat in the bathroom. 5. Don't bend over at the waist. Use a long handled shoehorn and a sock aid to help you put on your shoes and socks. A frit maker can help you pick and shovel man objects that are too high or too low to reach. 6. Keep car riding to a minimum for at least one month after surgery. B. Your balance may be shaky for a while. Use crutches or a walker until directed by your doctor. C. Use hand rails when walking on stairs. D. Wear low heeled shoes with non-slip soles. E. Be sure that your floors are free of things that could trip you - throw rugs, electrical cords, small objects. Avoid wet and waxed floors, especially with crutches and canes. F. Try to walk several times a day with rest periods between. G. Continue with all the exercises taught to you in the hospital. Again, make walking a part of your daily routine. SPECIAL CARE INSTRUCTIONS: VERY IMPORTANT TO READ AND REVIEW A. You may still be at risk for phlebitis and blood clots. 1. Wear surgical stockings (CHRISTO hose) for 2 weeks after surgery to improve circulation and reduce swelling. 2. Take Aspirin 81mg twice daily for 4 weeks or as directed by your doctor. This is your blood thinner. 3. High risk patients may be prescribed a stronger blood thinner if necessary. 4. If you are on Coumadin normally, your family doctor/mounter clarinets should monitor your blood work. Expect a phone call the day of or the day after bloodwork is drawn to adjust your dosage. B. You must take antibiotics before having dental work, bladder, bowel and other surgery. Your doctor will provide you with a permanent card to carry describing precautions. C. Call [facility] if you have a fever, redness or swelling around the incision, cloudy drainage from incision, or sudden increase in pain in your hip, not relieved by your regular pain medication. D. Please call the office at if you have any concerns or questions about your operation or recovery. * YOU MAY SHOWER, NO TUB BATHS UNTIL CLEARED BY YOUR DOCTOR. * WEAR CHRISTO HOSE 20 HOURS PER DAY FOR 2 WEEKS. * YOU SHOULD USE A WALKER OR CRUTCHES FOR 2-4 WEEKS. THIS WILL HELP PREVENT STRAIN ON YOUR HIP MUSCLE AND ALLOW IT TO HEAL PROPERLY. YOU MAY WEAN TO A CANE TOLERATED. * MOST PATIENTS WILL HAVE HOME NURSING FOR THERAPY. IF YOU DECIDE TO DO OUTPATIENT PHYSICAL THERAPY, PLEASE SCHEDULE THIS 3 TIMES PER WEEK. * YOU MAY HAVE A LARGE, BAND-KIRILL LIKE DRESSING (SILVERON). THIS WILL REMAIN ON YOUR INCISION FOR 7 DAYS, THEN CAN BE REMOVED. IF INCISION IS LEAKING THROUGH DRESSING, PLEASE CALL THE OFFICE . FOLLOW UP VISIT: If appointment is not already scheduled: Please call [facility] to make a follow-up appointment for 2 weeks after your surgery at . Pending Studies at Discharge: No Stand-Alone Forms: My Runfaces, Smoking Cessation Medications and DC Order Prescriptions: New aspirin [Ecotrin Low Strength] 81 mg Tablet,Delayed Release (Dr/Ec) 81 mg PO BID Qty: 56 RF: 0 acetaminophen [Tylenol Extra Strength] 500 mg Tablet 1,000 mg PO Q8 PRN (Reason: pain) Qty: 90 RF: 0 oxycodone 5 mg Tablet 5 mg PO Q6H MDD 6 tabs PRN (Reason: pain) Qty: 30 RF: 0 sennosides [Senokot] 8.6 mg Tablet 17.2 mg PO HS PRN (Reason: constipation) Qty: 28 RF: 0 oxycodone 5 mg tablet 5 mg PO Q6H MDD 6 tabs PRN (Reason: pain) Qty: 30 RF: 0 Continued citalopram [Celexa] 10 mg Tablet 10 mg PO QAM RF: 0 calcium polycarbophil [Fiber-Tabs] 625 mg Tablet 1,250 mg PO QPM RF: 0 metoprolol succinate [Toprol XL] 25 mg Tablet Extended Release 24 Hr 25 mg PO QPM RF: 0 oxybutynin chloride 5 mg Tablet 5 mg PO QAM RF: 0 losartan 100 mg Tablet 100 mg PO QPM RF: 0 rosuvastatin 20 mg Tablet 20 mg PO QPM RF: 0 Dexilant 60 mg Capsule,Biphase Delayed Releas 60 mg PO QAM RF: 0 cholecalciferol (vitamin D3) [Vitamin D3] 5,000 unit Tablet 5,000 unit PO QAM RF: 0 Vitamin D 1 tab PO QAM RF: 0 cyclobenzaprine 10 mg Tablet 10 mg PO HS RF: 0 Discontinued aspirin [Aspir-81] 81 mg Tablet,Delayed Release (Dr/Ec) 81 mg PO QPM RF: 0 acetaminophen [Tylenol Extra Strength] 500 mg Tablet 1,000 mg PO Q6H PRN (Reason: Pain) RF: 0 ibuprofen [Advil] 200 mg Tablet 400 mg PO QID PRN (Reason: Pain) RF: 0 Discharge Orders: Discharge Order (Routine); Ordered 09/20/19 Ordered By: Pipo Bolanos/Other Patient Handouts: Diabetes Healthy Meals, Diabetes Carbs, Diabetes Exercise Benefits, Diabetes Activity Tips, Diabetes Living Life, A1C Admission Data Admit Date/Time: 09/19/19 12:51 Attending Provider: Pipo Drake Admit Provider: Pipo Drake Primary Care Provider: Chelsea Nash Other Providers: Christ Jay Other Interventions: Discharge Summary Assessment (RN) Last Done: 09/20/19 11:57 DC Date/Time DO NOT enter until pt leaves facility: 09/20/19 12:57
== END 2019-09-20 12:57 | disposition home health service (06) | DRG 470 ==
LOC: ASU 05:53 → 3E 12:51

== ENCOUNTER 2019-10-04 10:22 | Inpatient (IN) ==
[2019-10-04 11:53] LABS: Basophils # (auto) 0.06 K/uL (0-0.2); Basophils % (auto) 0.4 %; Eosinophils # (auto) 0.11 K/uL (0-0.5); Eosinophils % (auto) 0.7 %; Hematocrit (blood only) 39.8 % (42-52); Hemoglobin 12.9 g/dL (14.0-18.0); Immature Granulocytes # (auto) 0.17 K/uL (0.00-0.02); Immature Granulocytes % (auto) 1.1 %; Lymphocytes # (auto) 1.95 K/uL (1.2-3.4); Lymphocytes % (auto) 12.3 %; Mean Corpuscular Hemoglobin 29.4 pg (25-34); Mean Corpuscular Volume 90.7 fL (80-100); Mean Platelet Volume 9.1 fL (7.4-10.4); Monocytes # (auto) 1.03 K/uL (0.11-0.59); Monocytes % (auto) 6.5 %; Neutrophils # (auto) 12.48 K/uL (1.4-6.5); Platelet Count 281 K/uL (130-400); RDW Coefficient of Variation 14.3 % (11.5-14.5); RDW Standard Deviation 47.2 fL (36.4-46.3); Red Blood Count 4.39 M/uL (4.7-6.1)
[2019-10-04 12:02] LABS: Prothrombin Time 10.7 Seconds (9.0-12.0)
[2019-10-04 12:09] LABS: BUN Creatinine Ratio 19.9 (10-20); Blood Urea Nitrogen 22 mg/dl (7-18); Calcium 8.9 mg/dl (8.5-10.1); Carbon Dioxide 23 mmol/L (21-32); Chloride 109 mmol/L (98-107); Est GFR (African American) 78.5; Est GFR (Non-African American) 67.7; Glucose 117 mg/dl (70-99); Sodium 139 mmol/L (136-145)
[2019-10-04 12:15] LABS: C Reactive Protein 1.47 mg/dl (0-0.29); Mean Corpuscular Hgb Conc 32.4 g/dL (32-36)
[2019-10-04] MEDS: OXYCODONE HCL IR 5 MG TAB (IMMEDIATE RELEASE) PO PRN ×2 (12:31→20:23)
[2019-10-04] MEDS: HYDROmorphone INJ 0.5 MG/0.5 ML SYR IV PRN ×2 (14:47→23:31)
--- NOTE | 2019-10-04 15:16 | History and Physical Report ---
DATE OF ADMISSION: 10/04/2019 CHIEF COMPLAINT: Pain in right hip. HISTORY OF PRESENT ILLNESS: The patient is a 74-year-old white male known to our practice who is status post right total hip arthroplasty by Dr. Drake approximately 2 weeks ago. The patient states that he was initially doing well with his physical therapy and pain control was adequate. He states that he began having some increased pains off and on over the last week and one point he was using the toilet and felt that he had to stretch fairly far to clean himself and when he stood up, he had a twinge of pain in his right buttock. He states that was just probably proximal to the incision. He felt nothing serious that happened, but as time progressed, he began having increased pain with the right hip and groin and also shooting pains down into his right leg. He did have some mild low back pain that started at the right buttock proximally but states that most of his pain is in and around the anterior thigh and groin. He states that weightbearing on the right lower extremity causes extreme pain in the groin and anterior thigh. He was in the Emergency Room on the and was seen by the staff there and released and his pain continued to worsen and he came to see Dr. Drake today. After examination Dr. Drake wanted to admit him for further studies to rule out any fractures, etc. with the hip and/or pelvis and also to explore the possibility of spinal issues. The patient denies any fevers, chills or recent cold, flu or cold-like symptoms and otherwise he has felt well. PAST MEDICAL HISTORY: Prediabetic which he states he tries to control with diet. He does not take any medications. History of hypertension, history of CAD with stenting in 2007, 3-vessel, history of pneumonia in the past. He denies any history of tuberculosis, hepatitis, COPD, rheumatic fever, history of reflux on occasion, history of prostatitis a long time ago. PAST SURGICAL HISTORY: Three-vessel stenting in 2007 as noted above. Laparoscopic cholecystectomy in the past. He has had an open left knee surgery in 1967, but cannot remember what the surgery was for and a right total hip arthroplasty just approximately 2 weeks ago. FAMILY HISTORY: Heart disease and diabetes mellitus. SOCIAL HISTORY: The patient is a nonsmoker, does not drink alcohol. He is and lives with his spouse. MEDICATIONS: Vitamin D 1 tab p.o. q.a.m., Tylenol 1000 mg p.o. q. 6 hours p.r.n., aspirin 81 mg p.o. q.p.m., fiber tablets 1250 mg p.o. q.p.m., vitamin D3 5000 units p.o. q.a.m., citalopram 10 mg p.o. q.a.m., cyclobenzaprine 10 mg p.o. at bedtime, Dexilant 60 mg p.o. q.a.m., ibuprofen 400 mg p.o. q.i.d. p.r.n., losartan 100 mg p.o. q.p.m., metoprolol succinate 25 mg p.o. q.p.m., oxybutynin chloride 5 mg p.o. q.a.m., rosuvastatin 20 mg p.o. q.p.m. ALLERGIES: AMOXICILLIN, WHICH CAUSES HIVES AND THROAT SWELLING, ATORVASTATIN, MUSCLE ACHES. REVIEW OF SYSTEMS: Again, no recent fevers, chills, night sweats, unexplained weight loss or weight gain. No flu or cold-like symptoms. No increased cough or sputum production. No shortness of breath on exertion or at rest. No chest pain, chest pressure, irregular heartbeat. No increased cough or sputum production. No wheezing, no hemoptysis. Denies any unusual nausea, vomiting or diarrhea. Denies hematemesis, melena, hematochezia, history of reflux on occasion. No history of peptic ulcer disease, no history of hepatitis in the past. The patient did have his gallbladder removed, history of overactive bladder what he states makes him have increased urination. Denies any history of renal calculi. Denies any hematuria, pyuria, dysuria or frequent urinary tract infections. No overt history of BPH, history of prostatitis in the past. No history of CVA, TIA or seizure disorders. No recent vertigo or spinning sensations or lightheadedness. PHYSICAL EXAMINATION: GENERAL: The patient is an obese white male who is alert and oriented x3 and currently in no acute distress, pleasant and cooperative. He states that his pain in his right lower extremity at this time is about 2-3 at rest and only occurs usually whenever he is going through ambulation and range of motion. SKIN: Warm and dry. Turgor is good. HEENT: Head is normocephalic and atraumatic. There is no scleral icterus or injection. Nasal airway is patent. Oral mucosa is pink and moist. NECK: Supple. HEART: Regular rate and rhythm. LUNGS: Clear to auscultation. ABDOMEN: Soft, obese and nontender. Bowel sounds are present x4. GENITALIA AND RECTAL: Not performed at this time. EXTREMITIES: On examination of the patient's right lower extremity, he has some right thigh swelling compared to the left, which is likely residual from surgery and is nontender on palpation anterior to posterior. He has no pain in the right knee and he denies any calf pain bilaterally. He has good range of motion of his right ankle and toes and states his toes feel a little bit of numbness and tingling, but not overtly so and when comparing the left foot to the right foot, he says they are about the same. In regards to range of motion of his right hip, his head of bed was placed back to approximately 30 degrees and any attempts to do even passive forward flexion of the hip caused the patient moderate pain in the right anterior thigh and groin with some of the pain radiating distally. No pain in the right knee with range of motion, but any attempts to do forward flexion or extension causes him moderate discomfort. He has minimal discomfort with abduction or adduction and has mild to moderate pain with internal and external rotation of the right hip. Left lower extremity at this time is within normal limits and is nontender. Upper extremities are unaffected at this time and strengths are equal bilaterally and distal pulses are equal bilaterally of the upper extremities. He has no overt cervical, thoracic or lumbar pain on palpation and does have some mild pain on patient just at the top of the right buttock. He has a healing incision over his right hip from his previous MARYANNE and there is no overt drainage or erythema noted at this time. There is no gross motor or sensory loss seen at this time. Decreased range of motion of the right hip due to right groin pain. ASSESSMENT: Right hip and groin pain status post right total hip arthroplasty. PLAN: I have briefly spoken to Dr. Drake who has already ordered a CT scan of the right hip and pelvis and also an MRI of the lumbar spine. Dr. Courtney has been consulted to assess for any spinal issues. We will continue to provide pain control and try to increase mobilization as able. We will wait to see pending studies and go from there. Attending Physician Addendum: I reviewed MRI, CT and XR. MRI does not demonstrate acute disc herniation, XR and CT positive for mildly displaced B2 periprosthetic proximal femur fracture of the medial calcar/lesser trochanter. New findings compared to previous XRs taken on 10/02/19. I have discussed the findings and treatment options with the patient. I have indicated the patient for ORIF proximal femur, revision right MARYANNE, femoral component. The risks, benefits, complications and alternatives were discussed at length which include however not limited to, infection, blood clots, acute blood loss, injury to nerves, bone, vessels, soft tissue, arthrofibrosis, chronic pain, malunion, nonunion, hip dislocation, leg length discrepancy, failure of the implants, loss of limb and loss of life. Alternatives include no surgery which could result in worsening clinical symptoms. The patient wished to proceed with surgical intervention. 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
--- NOTE | 2019-10-04 16:32 | Magnetic Resonance Report ---
LUMBAR SPINE MRI HISTORY: Right leg pain. TECHNIQUE: Multiplanar multisequence MRI of the lumbar spine was performed without the use of contras t. COMPARISON: Pelvis 10/02/2019. FINDINGS: For the purpose of the report the L5-S1 disc space will be located on axial image 27 of 30. No fracture or subluxation within the lumbar spine. Disc spaces are relatively preserved for age. Sma ll focus of marrow edema at the superior endplate of T12 is likely due to a Schmorl's node. The conus terminates at the T12-L1 disc space level. Mild facet degenerative changes within the lower lumbar s pine. Paraspinal soft tissues are unremarkable. Lumbar spine subcutaneous edema is noted. This is lik fede chronic. L1-L2: Small broad-based posterior disc bulge without significant central canal or neural foraminal n arrowing. L2-L3: Small broad-based posterior disc bulge resulting in mild central canal and mild bilateral neur al foraminal narrowing. L3-L4: Small broad-based posterior disc bulge without significant central canal narrowing. There is m ild bilateral neural foraminal narrowing. L4-L5: No significant central canal narrowing. There is mild bilateral neural foraminal narrowing sigrid nita due to the facet hypertrophy. L5-S1: No significant central canal or neural foraminal narrowing. IMPRESSION: 1. Mild degenerative changes as described above most pronounced at the L2-L3 level where there is mil d central canal narrowing. 2. No disc herniations. 3. No fracture or subluxation. ACT 112: Negative or not required by law. Electronically signed by: Anthony Hui M.D. 10/04/2019 4:31 PM
--- NOTE | 2019-10-04 17:07 | CT Scan Report ---
RIGHT HIP CT CT DOSE: 1227.24 mGy.cm HISTORY: Right hip pain. TECHNIQUE: Multiaxial CT images of the right hip were performed and reformatted in the sagittal and c oronal plane without the use of contrast. A dose lowering technique was utilized adhering to the sigrid ncijessica of SHELLIE. COMPARISON: Pelvis 10/02/2019. FINDINGS: Status post recent right total arthroplasty. The hardware appears intact. There is a slight ly distracted vertical periprosthetic fracture within the medial proximal femoral shaft. This extends to the lesser trochanter. This demonstrates up to 9 mm of distraction anteriorly. No dislocation. Th e visualized pelvic bones are intact. Small fat-containing right inguinal hernia. Mild subcutaneous e yessy/fluid within the right lateral hip. This favors postoperative change. IMPRESSION: Slightly distracted vertical periprosthetic fracture within the medial proximal femoral shaft which i nvolves the lesser trochanter. ACT 112: Negative or not required by law. Electronically signed by: Anthony Hui M.D. 10/04/2019 5:06 PM
--- NOTE | 2019-10-04 19:39 | XRay Report ---
XR hip RT min 2V CLINICAL HISTORY: fracture COMPARISON: CT of the right hip performed earlier today. FINDINGS: Right hip arthroplasty is noted. Alignment is anatomic. Note is made of a slightly distrac jeanette vertical periprosthetic fracture within the medial proximal femoral shaft, shown on CT performed earlier today. There are no unexpected radiopaque foreign bodies. Acetabular screw is in place. IMPRESSION: Redemonstration of a slightly distracted vertical periprosthetic fracture within the medi al proximal femoral shaft. Electronically signed by: Breezy Wagner M.D. 10/04/2019 7:37 PM
[2019-10-04] MEDS: ROSUVASTATIN CALCIUM 20 MG TAB PO SCH (20:23)
[2019-10-04] MEDS: LOSARTAN POTASSIUM 50 MG TAB PO SCH (20:23)
[2019-10-04] MEDS: METOPROLOL SUCC 25MG EXT REL TAB PO SCH (20:24)
[2019-10-04] MEDS: CYCLOBENZAPRINE HCL 10 MG TAB PO SCH (20:24)
[2019-10-04] MEDS ORDERED: ASPIRIN 81 MG ECTAB PO SCH (21:00)
[2019-10-04] MEDS ORDERED: VANCOMYCIN CONSULT ACTIVE PRN (21:34)
[2019-10-04] MEDS ORDERED: PHARMACY GLYCEMIC MGMT CONSULT PRN (21:48)
[2019-10-04] MEDS ORDERED: GLUCOSE 10 TABS/TUBE PO PRN (22:00)
[2019-10-04] MEDS ORDERED: GLUCOSE 40% GEL 15 GM TUBE PO PRN (22:00)
[2019-10-04] MEDS ORDERED: CARBOHYDRATES FOR HYPOGLYCEMIA PO PRN (22:00)
[2019-10-04] MEDS ORDERED: DEXTROSE 50% 50 ML SYRINGE IV PRN (22:00)
[2019-10-04] MEDS ORDERED: GLUCAGON FOR INJ 1 MG VIAL SQ PRN (22:00)
--- NOTE | 2019-10-04 23:06 | Pharmacy Report ---
Glycemic Control Consultation - Date of Service October 04, 2019 - Scope Scope: Glycemic Pharmacist consulted by Dr Drake on 10/04 for glycemic control and to write orders per [facility] inpatient glycemic control protocol - Objective Weight: 121.563 kg Accuchecks BSG (last 24hrs): 10/04/19 11:33 Glucose 117 H Laboratory Data (last 24hrs): 10/04/19 11:33 Potassium 4.0 Carbon Dioxide 23 Anion Gap 7.0 Creatinine 1.08 Est Cr Clr Drug Dosing Not Reportable - Recent Pertinent Medications Outpatient Anti-diabetic Regimen: * n/a - diet controlled * A1c = 7.1 % 08/24/19 Risk Factors for Insulin Resistance: * Steroids: will receive Decadron 4 mg in ortho preparation tomorrow * Recent Surgery: scheduled for hip surgery tomorrow * Diet: NPO - Assessment & Plan Assessment & Plan: ASSESSMENT: * 74 y/o male admitted for hip pain s/p MARYANNE on 09/19. Plans in place to take back to surgery tomorrow. * He has a history of T2DM, controlled with diet at this point. * In preparation for stress of surgery and dexamethasone in ortho joint preparation, will initiate Novolog based on insulin calculator estimates. He did not receive insulin during his last admission but I also do not have much BSG data to refer to. Anticipate potential increase in BSGs with above stressors. PLAN FOR INPATIENT GLYCEMIC CONTROL: * Bolus insulin * NovoLog per scale ACHS or Q6hrs while NPO * Goal Range: Low 110 mg/dL - High 140 mg/dL * Correction Factor: 25 mg/dL/unit * Nutritional / Prandial insulin per carb ratio of 1 unit per 9 grams CHO consumed * Please note that the plan above was derived based on current level of insulin resistance and hospital stress. These recommendations are appropriate for inpatient admission only. Plan of care upon discharge will need to be reassessed to avoid potential outpatient hypo/hyperglycemia. Thank you.
--- NOTE | 2019-10-04 23:19 | Hospitalist Consultation ---
Date of Consultation October 04, 2019 History of Present Illness Attending Physician: Pipo Drake DO Allergies Allergy/AdvReac Type Severity Reaction Status Date / Time amoxicillin Allergy Unknown HIVES, Verified 10/02/19 13:00 THROAT/TONGUE SWELLING atorvastatin [From Lipitor] AdvReac Unknown MUSCLE Verified 10/02/19 13:00 ACHES Home Medications Home Medications Medication Instructions Recorded Confirmed Type Dexilant 60 mg PO QAM 08/05/19 10/04/19 History calcium polycarbophil [Fiber-Tabs] 1,250 mg PO QPM 08/05/19 10/04/19 History cholecalciferol (vitamin D3) 5,000 unit PO QAM 08/05/19 10/04/19 History [Vitamin D3] citalopram [Celexa] 10 mg PO QAM 08/05/19 10/04/19 History cyclobenzaprine 10 mg PO HS 08/05/19 10/04/19 History losartan 100 mg PO QPM 08/05/19 10/04/19 History metoprolol succinate [Toprol XL] 25 mg PO QPM 08/05/19 10/04/19 History oxybutynin chloride 5 mg PO QAM 08/05/19 10/04/19 History rosuvastatin 20 mg PO QPM 08/05/19 10/04/19 History acetaminophen [Tylenol Extra 1,000 mg PO Q8 PRN #90 tab 09/19/19 10/04/19 Rx Strength] aspirin [Ecotrin Low Strength] 81 mg PO BID #56 tab 09/19/19 10/04/19 Rx celecoxib 200 mg PO BID 10/02/19 10/04/19 History oxycodone 10 mg PO Q4H PRN 10/02/19 10/04/19 History acetaminophen [Tylenol Extra 10/04/19 History Strength] Patient History Social History Preferred Language: Azerbaijani Communication Ability: Effective Fans Clerk Required: No Beliefs That Will Affect Care: None marital status: Current Living Situation: Spouse Other Information That Helps Us Care for You: No Feels Safe at Home: Yes Safety Concerns: Feels Safe At This Time Smoking Status: Never smoker Do You Dip or Chew Tobacco: No ; Second Hand Exposure: No ; Tobacco Cessation Education Requested by Patient: No Hx Alcohol Use: No Hx Substance Use: No Results & Data Vital Signs (Past 12 Hours) Vital Signs Temp Pulse Pulse Resp BP Pulse Ox 10/04/19 20:11 96 H 133/73 10/04/19 16:57 37.1 C 92 H 16 157/75 H 95 Laboratory Results Laboratory Results WBC 15.80 K/uL (4.8-10.8) H 10/04/19 11:33 RBC 4.39 M/uL (4.7-6.1) L 10/04/19 11:33 Hgb 12.9 g/dL (14.0-18.0) L 10/04/19 11:33 Hct 39.8 % (42-52) L 10/04/19 11:33 MCV 90.7 fL (80-100) 10/04/19 11:33 MCH 29.4 pg (25-34) 10/04/19 11:33 MCHC 32.4 g/dL (32-36) 10/04/19 11:33 RDW Std Deviation 47.2 fL (36.4-46.3) H 10/04/19 11:33 RDW Coeff of Nazia 14.3 % (11.5-14.5) 10/04/19 11:33 Plt Count 281 K/uL (130-400) 10/04/19 11:33 MPV 9.1 fL (7.4-10.4) 10/04/19 11:33 Immature Gran % (Auto) 1.1 % 10/04/19 11:33 Neut % (Auto) 79.0 % 10/04/19 11:33 Lymph % (Auto) 12.3 % 10/04/19 11:33 [place] % (Auto) 6.5 % 10/04/19 11:33 Eos % (Auto) 0.7 % 10/04/19 11:33 Baso % (Auto) 0.4 % 10/04/19 11:33 Immature Gran # (Auto) 0.17 K/uL (0.00-0.02) H 10/04/19 11:33 Neut # (Auto) 12.48 K/uL (1.4-6.5) H 10/04/19 11:33 Lymph # (Auto) 1.95 K/uL (1.2-3.4) 10/04/19 11:33 [place] # (Auto) 1.03 K/uL (0.11-0.59) H 10/04/19 11:33 Eos # (Auto) 0.11 K/uL (0-0.5) 10/04/19 11:33 Baso # (Auto) 0.06 K/uL (0-0.2) 10/04/19 11:33 ESR 63 mm/hr (0-14) H 10/04/19 11:33 PT 10.7 Seconds (9.0-12.0) 10/04/19 11:33 INR 1.0 (0.9-1.1) 10/04/19 11:33 Sodium 139 mmol/L (136-145) 10/04/19 11:33 Potassium 4.0 mmol/L (3.5-5.1) 10/04/19 11:33 Chloride 109 mmol/L (98-107) H 10/04/19 11:33 Carbon Dioxide 23 mmol/L (21-32) 10/04/19 11:33 Anion Gap 7.0 (3-11) 10/04/19 11:33 BUN 22 mg/dl (7-18) H 10/04/19 11:33 Creatinine 1.08 mg/dl (0.6-1.4) 10/04/19 11:33 Est Cr Clr Drug Dosing Not Reportable 10/04/19 11:33 Est GFR ( Amer) 78.5 10/04/19 11:33 Est GFR (Non-Af Amer) 67.7 10/04/19 11:33 BUN/Creatinine Ratio 19.9 (10-20) 10/04/19 11:33 Glucose 117 mg/dl (70-99) H 10/04/19 11:33 Calcium 8.9 mg/dl (8.5-10.1) 10/04/19 11:33 C-Reactive Protein 1.47 mg/dl (0-0.29) H 10/04/19 11:33
--- NOTE | 2019-10-04 23:47 | Communication Note ---
Date of Service: October 04, 2019 Patient refusing medical consultation for medical management/preop eval despite explanation that admitting computer network support specialist requested for service. Patient stated that he does not need the service and is insinuating that the medical consultation is for "money". MedSur unit charge nurse requested to relay to Orthopedics patient refusal of medical consultation service.
[2019-10-05] MEDS ORDERED: INSULIN ASPART 100 UNITS/ML 3 ML PEN SC SCH
[2019-10-05] MEDS: INSULIN ASPART 100 UNITS/ML 3 ML PEN SC SCH ×6 (00:14→20:49)
[2019-10-05] MEDS: OXYCODONE HCL IR 5 MG TAB (IMMEDIATE RELEASE) PO PRN ×3 (04:36→23:45)
[2019-10-05] MEDS ORDERED: VANCOMYCIN HCL 1,750 MG in SODIUM CHLORIDE 0.9% 500 ML IV SCH (06:00)
[2019-10-05] MEDS: CITALOPRAM 20 MG TAB PO SCH (07:53)
[2019-10-05] MEDS: PANTOprazole 40 MG TAB PO SCH (07:53)
[2019-10-05] MEDS: CHOLECALCIFEROL 1,000 UNITS TAB PO SCH (07:53)
[2019-10-05] MEDS: OXYBUTYNIN CHLORIDE 5 MG TAB PO SCH (07:53)
--- NOTE | 2019-10-05 09:12 | Consultation ---
Date of Consultation October 05, 2019 Assessment & Plan (1) Encounter for pre-operative examination: FEMORAL FRACTURE Patient for ORIF today Underwent stress test last month, negative for ischemia Patient moderate risk for cardiopulmonary complications for planned surgery No medical contraindication to proceed with orthopedic surgery Continue metoprolol, hold Lasix this morning, resume losartan in the evening if blood pressure allows Resume aspirin as soon as possible per cardiology recommendation History of CAD, status post CABG status post stent placement in 2007 No cardiac symptoms, EKG from last month reviewed Medication management per 1 Diabetes type 2 A1c 7.1 as of last month Presently diet controlled Insulin sliding scale while admitted Hypertension Continue metoprolol, resume losartan in the evening if blood pressure allows Dyslipidemia Continue Crestor Leg edema Usually on Lasix, hold for today We will obtain Doppler ultrasound to rule out DVT in light of recent surgery DVT prophylaxis Per orthopedic service Thank you for this consultation. We will follow the patient with you during their hospital stay. You can reach a member of the [facility] Team 11/05 via pager @ [phone]. History of Present Illness Patient is a 74-year-old male with history of CAD, status post stent placement, diabetes type 2, hypertension, dyslipidemia, NADINE Presenting with hip pain Medical consultation requested for preoperative clearance and postoperative medical management. Patient seen sitting up in bed, reading the newspaper, comfortable. He states that his pain is much better this morning. He denies having any chest pain, shortness of breath, palpitations, dizziness, headaches, focal neurologic deficits. No abdominal pain, nausea vomiting, change in urination or bowel movements He denies other symptoms Attending Physician: Pipo Drake, Allergies Allergy/AdvReac Type Severity Reaction Status Date / Time amoxicillin Allergy Unknown HIVES, Verified 10/02/19 13:00 THROAT/TONGUE SWELLING atorvastatin [From Lipitor] AdvReac Unknown MUSCLE Verified 10/02/19 13:00 ACHES Home Medications Home Medications Medication Instructions Recorded Confirmed Type Dexilant 60 mg PO QAM 08/05/19 10/04/19 History calcium polycarbophil [Fiber-Tabs] 1,250 mg PO QPM 08/05/19 10/04/19 History cholecalciferol (vitamin D3) 5,000 unit PO QAM 08/05/19 10/04/19 History [Vitamin D3] citalopram [Celexa] 10 mg PO QAM 08/05/19 10/04/19 History cyclobenzaprine 10 mg PO HS 08/05/19 10/04/19 History losartan 100 mg PO QPM 08/05/19 10/04/19 History metoprolol succinate [Toprol XL] 25 mg PO QPM 08/05/19 10/04/19 History oxybutynin chloride 5 mg PO QAM 08/05/19 10/04/19 History rosuvastatin 20 mg PO QPM 08/05/19 10/04/19 History acetaminophen [Tylenol Extra 1,000 mg PO Q8 PRN #90 tab 09/19/19 10/04/19 Rx Strength] aspirin [Ecotrin Low Strength] 81 mg PO BID #56 tab 09/19/19 10/04/19 Rx celecoxib 200 mg PO BID 10/02/19 10/04/19 History oxycodone 10 mg PO Q4H PRN 10/02/19 10/04/19 History acetaminophen [Tylenol Extra 10/04/19 History Strength] Patient History Social History Preferred Language: Maori Communication Ability: Effective Peer Health Promoter Required: No Beliefs That Will Affect Care: None marital status: Current Living Situation: Spouse Other Information That Helps Us Care for You: No Feels Safe at Home: Yes Safety Concerns: Feels Safe At This Time Smoking Status: Never smoker Do You Dip or Chew Tobacco: No ; Second Hand Exposure: No ; Tobacco Cessation Education Requested by Patient: No Hx Alcohol Use: No Hx Substance Use: No Review of Systems Review of Systems: All systems reviewed & are unremarkable except as noted in HPI & below Physical Exam Physical Exam: General- oriented x 3, not in distress, speaks in sentences with no effort or accessory muscle use Head- atraumatic Eyes- PERRL, EOMI, anicteric ENT- oropharynx clear Neck- supple, no JVD, no adenopathy, no thyromegaly; carotids +2/2, no bruits appreciated Lungs- clear to auscultation bilaterally, no rales/wheezes Heart- normal rate, regular rhythm; no murmur, no gallop, no rub appreciated Abdomen- normal bowel sounds, nondistended, soft, nontender, no masses or hepa tosplenomegaly Extremities-positive mild lower leg edema right greater than left, no calf tenderness; peripheral pulses intact Neuro- alert, oriented x 3; CN 2-12 grossly intact; motor 5/5 bilateral ly;sensation 100% on all extremities; no other gross focal neurologic deficits Skin- warm & dry Results & Data Vital Signs (Past 12 Hours) Vital Signs Temp Pulse Resp BP Pulse Ox 10/05/19 07:49 36.7 C 79 18 146/77 H 91 10/04/19 23:34 36.8 C 89 16 153/79 H 90 Laboratory Results Laboratory Results - last 24 hr 10/04/19 10/04/19 10/04/19 11:33 11:33 11:33 WBC 15.80 H RBC 4.39 L Hgb 12.9 L Hct 39.8 L MCV 90.7 MCH 29.4 MCHC 32.4 RDW Std Deviation 47.2 H RDW Coeff of Nazia 14.3 Plt Count 281 MPV 9.1 Immature Gran % (Auto) 1.1 Neut % (Auto) 79.0 Lymph % (Auto) 12.3 [place] % (Auto) 6.5 Eos % (Auto) 0.7 Baso % (Auto) 0.4 Immature Gran # (Auto) 0.17 H Neut # (Auto) 12.48 H Lymph # (Auto) 1.95 [place] # (Auto) 1.03 H Eos # (Auto) 0.11 Baso # (Auto) 0.06 ESR 63 H PT 10.7 INR 1.0 Sodium Potassium Chloride Carbon Dioxide Anion Gap BUN Creatinine Est Cr Clr Drug Dosing Est GFR ( Amer) Est GFR (Non-Af Amer) BUN/Creatinine Ratio Glucose POC Glucose Calcium C-Reactive Protein Hepatitis C Ab Screen 10/04/19 10/04/19 10/05/19 11:33 11:33 00:00 WBC RBC Hgb Hct MCV MCH MCHC RDW Std Deviation RDW Coeff of Nazia Plt Count MPV Immature Gran % (Auto) Neut % (Auto) Lymph % (Auto) [place] % (Auto) Eos % (Auto) Baso % (Auto) Immature Gran # (Auto) Neut # (Auto) Lymph # (Auto) [place] # (Auto) Eos # (Auto) Baso # (Auto) ESR PT INR Sodium 139 Potassium 4.0 Chloride 109 H Carbon Dioxide 23 Anion Gap 7.0 BUN 22 H Creatinine 1.08 Est Cr Clr Drug Dosing Not Reportable Est GFR ( Amer) 78.5 Est GFR (Non-Af Amer) 67.7 BUN/Creatinine Ratio 19.9 Glucose 117 H POC Glucose 120 H Calcium 8.9 C-Reactive Protein 1.47 H Hepatitis C Ab Screen Neg 10/05/19 06:19 WBC RBC Hgb Hct MCV MCH MCHC RDW Std Deviation RDW Coeff of Nazia Plt Count MPV Immature Gran % (Auto) Neut % (Auto) Lymph % (Auto) [place] % (Auto) Eos % (Auto) Baso % (Auto) Immature Gran # (Auto) Neut # (Auto) Lymph # (Auto) [place] # (Auto) Eos # (Auto) Baso # (Auto) ESR PT INR Sodium Potassium Chloride Carbon Dioxide Anion Gap BUN Creatinine Est Cr Clr Drug Dosing Est GFR ( Amer) Est GFR (Non-Af Amer) BUN/Creatinine Ratio Glucose POC Glucose 129 H Calcium C-Reactive Protein Hepatitis C Ab Screen
[2019-10-05] MEDS ORDERED: Nursing to Pharmacy Communication ONE (13:31)
--- NOTE | 2019-10-05 14:35 | Ultrasound Report ---
US venous doppler LE CLINICAL HISTORY: 74 years-old Male presenting with bilateral lower extremity pain and swelling, femu r fracture. TECHNIQUE: Real-time grayscale and color and spectral Doppler ultrasound imaging of the veins of the bilateral lower extremities was performed. Compression and augmentation were also utilized. COMPARISON: None. FINDINGS: RIGHT: Common femoral vein: Patent. Greater saphenous vein (superficial): Patent. Deep femoral vein: Patent. Femoral vein: Patent. Popliteal vein: Patent. Calf veins: Patent. LEFT: Common femoral vein: Patent. Greater saphenous vein (superficial): Patent. Deep femoral vein: Patent. Femoral vein: Patent. Popliteal vein: Patent. Calf veins: Patent. Other: None. IMPRESSION: No evidence of deep venous thrombosis. ACT 112: Negative or not required by law. Electronically signed by: Fran Torres M.D. 10/05/2019 2:34 PM
--- NOTE | 2019-10-05 20:41 | Orthopedic Progress Note ---
Date of Service October 05, 2019 Assessment & Plan (1) Periprosthetic fracture around internal prosthetic right hip joint: For OR tomorrow for ORIF Proximial periprosthetic femur fx; explant femoral stem with implantation of longer femoral stem; femoral head change. Supervising Physician Co-Signing Physician Notes Patient seen and examined, agree with above assessment and plan. Medical hospitalist recs appreciated. We will proceed with surgery pending OR and equipment availability. Subjective Periprosthetic hip fx diagnosed on CT scan. Pt lying in bed this evening. No complaints currently. States he had increased pain with activity today but was relieved with pain meds. No new complaints. Looking forward to getting his hip fixed. Physical Exam Physical Exam: Continues with pain in the right groin and anterior thigh with active ROM. Minimal pain at rest. Calves soft, NT. NV intact. Toes mobile. Thigh swelling essentially unchanged. Results & Data Vital Signs (Past 12 Hours) Vital Signs Temp Pulse Resp BP Pulse Ox 10/05/19 16:04 37.1 C 86 16 125/60 90 Diagnostic Findings [place], [place] [phone] CT Scan Report Patient: CADE SHANNON Date: 10/04/19 MR#: [id number]: [id number] Acct ID:[id number]: [facility] Zip: [place] [address] Age: 74Location: 3N Sex: M Room/Bed: [facility] Att Phy: Pipo Drake D.O.Diagnosis: UNCONTROLLED PAIN [place] Phy: Chelsea Nash, DOService Date: 10/04/19 Fam Phy:Interpreting Phy: Anthony Hui MD Admit Phy: Pipo Drake D.O. Ordering Phy: Pipo Drake D.O. cc: ~ RIGHT HIP CT CT DOSE: 1227.24 mGy.cm HISTORY: Right hip pain. TECHNIQUE: Multiaxial CT images of the right hip were performed and reformatted in the sagittal and coronal plane without the use of contrast. A dose lowering technique was utilized adhering to the principles of ALARA. COMPARISON: Pelvis 10/02/2019. FINDINGS: Status post recent right total arthroplasty. The hardware appears intact. There is a slightly distracted vertical periprosthetic fracture within the medial proximal femoral shaft. This extends to the lesser trochanter. This demonstrates up to 9 mm of distraction anteriorly. No dislocation. The visualized pelvic bones are intact. Small fat-containing right inguinal hernia. Mild subcutaneous edema/fluid within the right lateral hip. This favors postoperative change. IMPRESSION: Slightly distracted vertical periprosthetic fracture within the medial proximal femoral shaft which involves the lesser trochanter. ACT 112: Negative or not required by law. Electronically signed by: Anthony Hui M.D. 10/04/2019 5:06 PM
[2019-10-05] MEDS: LOSARTAN POTASSIUM 50 MG TAB PO SCH (20:57)
[2019-10-05] MEDS: CYCLOBENZAPRINE HCL 10 MG TAB PO SCH (20:57)
[2019-10-05] MEDS: ROSUVASTATIN CALCIUM 20 MG TAB PO SCH (20:58)
[2019-10-05] MEDS: METOPROLOL SUCC 25MG EXT REL TAB PO SCH (20:58)
[2019-10-06] MEDS ORDERED: Nursing to Pharmacy Communication ONE ×2 (05:30→20:55)
[2019-10-06 05:38] LABS: Hematocrit (blood only) 40.5 % (42-52); Mean Corpuscular Hemoglobin 29.1 pg (25-34); Mean Corpuscular Hgb Conc 32.1 g/dL (32-36); Mean Corpuscular Volume 90.6 fL (80-100); Mean Platelet Volume 9.1 fL (7.4-10.4); Platelet Count 263 K/uL (130-400); RDW Coefficient of Variation 14.6 % (11.5-14.5); RDW Standard Deviation 47.9 fL (36.4-46.3); Red Blood Count 4.47 M/uL (4.7-6.1); White Blood Count 11.25 K/uL (4.8-10.8)
[2019-10-06] MEDS: INSULIN ASPART 100 UNITS/ML 3 ML PEN SC SCH ×4 (05:55→22:05)
[2019-10-06 06:03] LABS: BUN Creatinine Ratio 22.9 (10-20); Calcium 8.9 mg/dl (8.5-10.1); Est GFR (African American) 83.1; Est GFR (Non-African American) 71.7; Potassium 4.1 mmol/L (3.5-5.1)
[2019-10-06] MEDS: OXYBUTYNIN CHLORIDE 5 MG TAB PO SCH (07:08)
[2019-10-06] MEDS: CITALOPRAM 20 MG TAB PO SCH (07:08)
[2019-10-06] MEDS: PANTOprazole 40 MG TAB PO SCH (07:08)
[2019-10-06] MEDS: CHOLECALCIFEROL 1,000 UNITS TAB PO SCH (07:09)
--- NOTE | 2019-10-06 10:53 | Hospitalist Progress Note ---
Date of Service October 06, 2019 Assessment & Plan (1) Periprosthetic fracture around internal prosthetic right hip joint: CT R HIP: Slightly distracted vertical periprosthetic fracture within the medial proximal femoral shaft which involves the lesser trochanter. Negative DVT on Venous doppler study Postop day #1 Stable overall Hemoglobin 11, continue to monitor Lovenox started for DVT prophylaxis (2) Diabetes mellitus, type II: A1c: 7.1 in 08/2019 Diet controlled -Insulin sliding scale per protocol -BSG's within acceptable range (3) CAD (coronary artery disease): No CP, SOB -Resume aspirin as soon as possible when ortho allows -Continue metoprolol, statin (4) Hypertension: -Stable -Continue metoprolol, losartan (5) Hyperlipidemia: -Continue Crestor (6) Depression: -Continue Celexa DVT Prophylaxis -Lovenox subcutaneous daily Thank you for this consultation. We will follow the patient with you during their hospital stay. You can reach a member of the [place] Hospitalist Team 11/05 via pager @ [phone]. Subjective Follow-up status post hip surgery Seen resting in bed, comfortable, not in distress In good spirits States he pain is well controlled Denies chest pain or palpitations, dizziness, nausea, abdominal pain No other symptoms Pt seen and examined around 9:45 am. Lying in bed. Pt states pain controlled with pain medications. Reports frustration about his fracture and is awaiting surgical procedure today. Last BM 3 days ago. Denies fever/chills, diaphoresis, N/V/D, LOGAN, dizziness, syncope, vision changes, neck pain, CP, SOB, orthopnea, palpitations, cough, sore throat, choking, otalgia, rhinorrhea, abdominal pain, paresthesias, weakness, extremity edema, rashes, urinary symptoms. Review of Systems Review of Systems: All systems reviewed & are unremarkable except as noted in HPI & below Physical Exam Physical Exam: General- oriented x 3, not in distress, speaks in sentences with no effort or accessory muscle use Eyes- anicteric Neck- no JVD Lungs- clear breath sounds bilaterally, no rales/wheezes Heart- normal rate, regular rhythm; no murmurs Abdomen- normal bowel sounds, nondistended, soft, nontender Extremities-right lower extremity: Mild pretibial edema, no calf tenderness Right hip: Drain in place, dressing in place, no bleeding or discharge Neuro- alert, oriented x 3; no gross focal neurologic deficits Skin- warm & dry Results & Data Vital Signs (Past 12 Hours) Vital Signs Temp Pulse Resp BP Pulse Ox 10/06/19 07:29 37.2 C 81 18 158/82 H 90 10/05/19 23:43 36.7 C 91 H 19 151/82 H 91 Laboratory Results Short CBC 10/06/19 Range/Units 05:16 WBC 11.25 H (4.8-10.8) K/uL Hgb 13.0 L (14.0-18.0) g/dL Hct 40.5 L (42-52) % Plt Count 263 (130-400) K/uL BMP 10/06/19 05:16 Sodium 139 Potassium 4.1 Chloride 108 H Carbon Dioxide 27 BUN 24 H Creatinine 1.03 Glucose 123 H Calcium 8.9
[2019-10-06] MEDS: HYDROmorphone INJ 0.5 MG/0.5 ML SYR IV PRN (12:17)
[2019-10-06] MEDS ORDERED: fentaNYL citrate 100 MCG/2 ML VIAL ONE ×2 (13:52→16:40)
[2019-10-06] MEDS ORDERED: PROPOFOL IV EMULSION 10 MG/ML 20 ML VIAL IV ONE (13:52)
[2019-10-06] MEDS ORDERED: MIDAZOLAM HCL 1 MG/ML 2ML VIAL ONE (13:52)
[2019-10-06] MEDS ORDERED: LIDOCAINE HCL 2% 2 ML VIAL/AMP(20MG/ML) INFIL ONE (13:52)
[2019-10-06] MEDS ORDERED: BACITRACIN INJ 50,000 UNIT VIAL ONE ×2 (14:09→18:14)
--- NOTE | 2019-10-06 14:42 | Anesthesiology Consultation ---
Date of Service October 06, 2019 Assessment & Plan Chart Review Chart Review: Acceptable Risk for Surgery and Patient NOT seen in Pre Admission Testing Consults Requested none ASA ASA3 Proposed Anesthesia Anesthesia Type: General and MAC Spinal Anesthesia Line Insertion: Arterial line Risk / Benefits Reviewed With: PT / POA / Parent / Guardian, Accepts Plan and Informed Consent Obtained History Surgery Operation Date: 10/06/19 07:00 Proposed Procedures p Right Total Hip Revision - Pipo Drake, Height/Weight Height: 5 ft 8 in Weight: 121.563 kg Allergies Allergy/AdvReac Type Severity Reaction Status Date / Time amoxicillin Allergy Unknown HIVES, Verified 10/02/19 13:00 THROAT/TONGUE SWELLING atorvastatin [From Lipitor] AdvReac Unknown MUSCLE Verified 10/02/19 13:00 ACHES Medications Home Medications Medication Instructions Recorded Confirmed Last Taken Dexilant 60 mg PO QAM 08/05/19 10/06/19 10/04/19 06:00 calcium polycarbophil [Fiber-Tabs] 1,250 mg PO QPM 08/05/19 10/06/19 09/18/19 18:00 citalopram [Celexa] 10 mg PO QAM 08/05/19 10/06/19 10/04/19 06:00 cyclobenzaprine 10 mg PO HS 08/05/19 10/06/19 10/03/19 22:00 losartan 100 mg PO QPM 08/05/19 10/06/19 10/03/19 17:00 metoprolol succinate [Toprol XL] 25 mg PO QPM 08/05/19 10/06/19 10/03/19 22:00 oxybutynin chloride 5 mg PO QAM 08/05/19 10/06/19 10/04/19 06:00 rosuvastatin 20 mg PO QPM 08/05/19 10/06/19 10/03/19 17:00 acetaminophen [Tylenol Extra 1,000 mg PO Q8 PRN #90 tab 09/19/19 10/06/19 10/04/19 07:00 Strength] 1000 mg aspirin [Ecotrin Low Strength] 81 mg PO BID #56 tab 09/19/19 10/06/19 10/04/19 06:00 celecoxib 200 mg PO BID 10/02/19 10/06/19 10/04/19 06:00 oxycodone 10 mg PO Q4H PRN 10/02/19 10/06/19 10/04/19 12:31 10 mg docusate sodium [Colace] 100 mg PO HS 10/06/19 10/06/19 Unknown Active Medications Generic Name Dose Route Start Last Admin Trade Name Freq PRN Reason Stop Dose Admin Citalopram Hydrobromide 10 mg 10/05/19 09:00 10/06/19 07:08 Celexa PO 11/04/19 08:59 Not Given QAM OMAR Cyclobenzaprine HCl 10 mg 10/04/19 21:00 10/05/19 20:57 Flexeril PO 11/03/19 20:59 10 mg HS OMAR Administration Hydromorphone HCl 0.25 mg 10/04/19 12:04 10/06/19 12:17 Dilaudid IV 10/18/19 12:03 0.25 mg Q4H PRN Administration Pain Insulin Aspart 0 units 10/06/19 06:00 10/06/19 12:42 Novolog Flexpen SC 11/05/19 05:59 Not Given Q6 OMAR Protocol Losartan Potassium 100 mg 10/04/19 21:00 10/05/19 20:57 Cozaar PO 11/03/19 20:59 100 mg QPM OMAR Administration Metoprolol Succinate 25 mg 10/04/19 21:00 10/05/19 20:58 Toprol Xl PO 11/03/19 20:59 25 mg QPM OMAR Administration Oxybutynin Chloride 5 mg 10/05/19 09:00 10/06/19 07:08 Ditropan PO 11/04/19 08:59 Not Given QAM OMAR Oxycodone HCl 5 - 10 mg 10/04/19 12:03 10/05/19 23:45 Roxicodone Immediate Rel PO 10/18/19 12:02 10 mg Q4H PRN Administration Pain Pantoprazole Sodium 40 mg 10/05/19 09:00 10/06/19 07:08 Protonix PO 11/04/19 08:59 Not Given QAM OMAR Rosuvastatin Calcium 20 mg 10/04/19 21:00 10/05/19 20:58 Crestor PO 11/03/19 20:59 20 mg QPM OMAR Administration Vitamin D 5,000 units 10/05/19 09:00 10/06/19 07:09 Vitamin D3 PO 11/04/19 08:59 Not Given QAM OMAR NPO Date Last Intake of Fluids: 10/05/19 Time Last Intake of Fluids: 21:30 Date Last Intake of Solids: 10/05/19 Time Last Intake of Solids: 21:30 Past Medical History Medical History CAD (coronary artery disease) stents x 3 (2008) Diabetes mellitus, type II GERD (gastroesophageal reflux disease) controlled Hiatal hernia Hyperlipidemia Hypertension Morbid obesity Osteoarthritis Prostatitis HX Sciatica Exercise / Class Metabolic Activity III < 4 Walking/Shop/Light housework Past Family History Family History Mother Family history of diabetes mellitus Father Family history of diabetes mellitus Past Surgical History Surgical History H/O foot surgery 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 RIGHT FOOT/TOES-[employer] ACCIDENT H/O knee surgery OPEN LEFT KNEE History of cardiac cath 2009= 3 STENTS 2016= NO STENTS History of cholecystectomy History of colonoscopy History of esophagogastroduodenoscopy (EGD) Past Anesthesia History No Hx of Anesthesia Complications and No Family Hx of Anesthesia Complications History of PONV No Hx of PONV and No Hx of Motion Sickness Social History Smoking Status: Never smoker Do You Dip or Chew Tobacco: No Hx Alcohol Use: No Hx Substance Use: No Physical Exam Vital Signs Last Vital Signs Temp 36.8 C 10/06/19 14:24 Pulse 85 10/06/19 14:24 Resp 18 10/06/19 14:24 BP 129/71 10/06/19 14:24 Pulse Ox 93 10/06/19 14:24 Constitutional + morbidly obese ENMT Mouth: + poor dentition Thyromental Distance: > or= 3.5 Finger Breadths Mallampati Class: II Neck normal visual inspection, trachea midline, + short neck and + thick neck; neck extension not limited Respiratory normal respiratory effort Auscultation: lungs clear to auscultation bilaterally Cardiovascular Rate/Rhythm: regular rate and regular rhythm Heart Sounds: no murmur Vessels: no carotid bruit Musculoskeletal Spine: normal cervical ROM Neurologic moves all extremities Motor/Sensory: no sensory deficit Psychiatric Orientation: alert and oriented x 3 Testing Laboratory Results 10/06/19 05:16 10/06/19 05:16 PT 10.7 Seconds (9.0-12.0) 10/04/19 11:33 INR 1.0 (0.9-1.1) 10/04/19 11:33 Blood Type O Positive 10/05/19 15:23 Antibody Screen NEGATIVE 10/05/19 15:23 10/06/19 10/06/19 12:22 05:19 POC Glucose 132 H 116 H Electrocardiogram Date: 08/24/19 Findings: + NSR @ (at 81) Echocardiogram Date: 09/13/19 EF: 55 LV Function: normal RWMA: + none Other Findings: + LVH (mild) and + diastolic dysfunction (grade 1) moderate aortic valve sclerosis w/o ;focal calcification no coronary cusp
--- NOTE | 2019-10-06 15:23 | History & Physical Bridge Note ---
Date of Service October 06, 2019 History & Physical Bridge Note I have examined the patient, reviewed the History & Physical and in the interval since the performance of the History & Physical I have noted the following changes of clinical significance: no changes noted
--- NOTE | 2019-10-06 15:26 | Orthopedic Progress Note ---
Date of Service October 06, 2019 Assessment & Plan (1) Periprosthetic fracture around internal prosthetic right hip joint: Have indicated the patient for revision right total hip arthroplasty, femoral component, ORIF proximal femur. The risks, benefits, complications alternatives of the procedure were explained to the patient in detail which include however not limited to infections, blood clots, acute blood loss, injury to surrounding nerves, bone, vessels, soft tissue, arthrofibrosis, chronic pain, malunion, nonunion, failure of the components, hip dislocation, leg length discrepancy, loss of limb and loss of life. Alternatives include no surgery which could result in worsening clinical pictures/symptoms, the patient and family members wish to proceed with surgical intervention at this time informed consent was obtained. Subjective Patient seen in preoperative holding, comfortable, pain well controlled, no acute issues overnight. Review of Systems Review of Systems: All systems reviewed & are unremarkable except as noted in HPI & below Constitutional: as per Subjective / HPI Physical Exam Physical Exam: RLE NVSI +EHL/FHL/TA/GS SILT grossly, +2 DP pulse, compartments soft NT, incision cdi Constitutional: WD/WN, vitals as above Results & Data Vital Signs (Past 12 Hours) Vital Signs Temp Pulse Resp BP Pulse Ox 10/06/19 14:24 36.8 C 85 18 129/71 93 10/06/19 07:29 37.2 C 81 18 158/82 H 90
[2019-10-06] MEDS ORDERED: ONDANSETRON INJ 2 MG/ML 2 ML VIAL ONE ×2 (16:39→18:37)
[2019-10-06] MEDS ORDERED: SUCCINYLCHOLINE 100MG/5ML SYR ONE (16:39)
[2019-10-06] MEDS ORDERED: ROCURONIUM BROMIDE 10 MG/ML 5 ML VIAL ONE ×3 (16:39→17:05)
[2019-10-06] MEDS ORDERED: HYDROmorphone INJ 2 MG/ML SYR/VIAL ONE (17:07)
[2019-10-06] MEDS ORDERED: FLUMAZENIL 0.1 MG/1 ML 10 ML VIAL IV PRN (18:05)
[2019-10-06] MEDS ORDERED: ePHEDrine sulfate 50 MG/ML AMP IV PRN (18:05)
[2019-10-06] MEDS ORDERED: HYDROmorphone INJ 1 MG/ML SYRINGE IV PRN (18:05)
[2019-10-06] MEDS ORDERED: NALOXONE HCL 0.4 MG/1 ML VIAL/CARP IV PRN ×2 (18:05→20:19)
[2019-10-06] MEDS ORDERED: ONDANSETRON INJ 2 MG/ML 2 ML VIAL IV PRN (18:05)
[2019-10-06] MEDS ORDERED: ATROPINE SULFATE 0.1 MG/ML 10ML SYR IV PRN (18:05)
[2019-10-06] MEDS ORDERED: PROMETHAZINE HCL 12.5 MG in SODIUM CHLORIDE 0.9% 50 ML IV PRN (18:05)
[2019-10-06] MEDS ORDERED: LABETALOL HCL IV 5 MG/ML 20ML IV PRN (18:05)
[2019-10-06] MEDS ORDERED: ORTHO JOINT ANESTHETIC ONE (18:09)
[2019-10-06] MEDS: ROPIVACAINE 0.5% HCL/PF 150 MG, BUPIVACAINE 0.5% MPF 30 ML, EPINEPHrine 0.15 MG, Ketoro... INFIL SCH ×2 (18:34→20:51)
--- NOTE | 2019-10-06 19:13 | Post Operative Brief Note ---
Immediate Post Op Note v1 Date of Surgery October 06, 2019 Pre & Post Diagnosis Operation Date: 10/06/19 07:00 Pre-Op Diagnosis: Slightly distracted vertical periprosthetic fracture with medial proximal femoral shaft which involves the lesser trochanter Post-Op Diagnosis: Slightly distracted vertical periprosthetic fracture with medial proximal femoral shaft which involves the lesser trochanter I identified the patient and participated in the time-out.: Yes Procedure Operation Date: 10/06/19 07:00 Actual Procedures p Right Total Hip Revision of femur and Open reduction internal fixation of proximal femur(Right) - Pipo Drake DO Surgeon Pipo Drake DO [facility] [place] Estimated Blood Loss 550 Findings Consistent with Post-Op Diagnosis Fluids 1500 cc LR Drains Cruz Catheter and Hemovac Drain (dual 10 fr) Anesthesia Type General Complications none Disposition Disposition: Recovery Room Overlapping Procedure I was present for: the critical portions of procedure. I was immediately available: during the entire case. Back up surgeon: was not required during procedure.
--- NOTE | 2019-10-06 19:27 | Fluoroscopy Report ---
FL hip RT 1V CLINICAL HISTORY: 74 years-old Male presenting with Right Total Hip Revision. TECHNIQUE: 3 fluoroscopic image(s) recorded as part of an intraoperative procedure. COMPARISON: 10/04/2019. FINDINGS/IMPRESSION: Postsurgical changes of cerclage wire fixation along the course of the femoral component of the right total hip arthroplasty. The periprosthetic femur fracture is not apparent on these fluoroscopic imag es. Please see surgical report for further details. Fluoroscopy dosage (mGy): 3.85. Fluoroscopy time: 22.3 seconds. Number or time of high level fluoroscopy (HLF), digital spot, or digital subtraction images: 0. ACT 112: Negative or not required by law. Electronically signed by: Fran Torres M.D. 10/06/2019 7:25 PM
[2019-10-06 19:44] LABS: Hematocrit (blood only) 37.2 % (42-52); Hemoglobin 12.2 g/dL (14.0-18.0)
--- NOTE | 2019-10-06 19:53 | Anesthesiology Progress Note ---
Date of Service October 06, 2019 Anesthesia Post Procedure Vital Signs Vital Signs: Temp Pulse Pulse Resp BP Pulse Ox 10/06/19 19:50 95 H 17 135/70 94 10/06/19 19:40 102 H 16 139/58 L 97 10/06/19 19:30 37.0 C 103 H 15 118/74 96 10/06/19 14:24 36.8 C 85 18 129/71 93 10/06/19 07:29 37.2 C 81 18 158/82 H 90 10/05/19 23:43 36.7 C 91 H 19 151/82 H 91 Pain Intensity Right Hip: Pain Intensity: 5 Transfer of Care Handoff Completed per policy Notes Mental Status: alert / awake / arousable Patient Amnestic to Procedure: Yes Nausea / Vomiting: adequately controlled Pain: adequately controlled Airway Patency, RR, SpO2: stable & adequate BP & HR: stable & adequate Hydration State: stable & adequate Anesthetic Complications: no major complications apparent
--- NOTE | 2019-10-06 20:07 | XRay Report ---
XR hip RT min 2V CLINICAL HISTORY: 74 years-old Male presenting with Post-Operative implant position. TECHNIQUE: Frontal and crosstable lateral views of the right hip were obtained. COMPARISON: 10/04/2019. FINDINGS: There has been interval 3 cerclage wire fixation of the proximal right femoral metadiaphysis along th e recently described periprosthetic fracture of the right femoral metaphysis. The total right hip art hroplasty is otherwise intact. Visualized portion of the right pelvis intact. Overlying skin trini in the lateral right thigh with a surgical drain in place and scant soft tissue emphysema. The site o f the periprosthetic fracture is not apparent. IMPRESSION: Interval cerclage wire fixation along the femoral component of the total right hip arthroplasty for t he periprosthetic femur fracture. ACT 112: Negative or not required by law. Electronically signed by: Fran Torres M.D. 10/06/2019 8:05 PM
--- NOTE | 2019-10-06 20:08 | Orthopedic Progress Note ---
Date of Service October 06, 2019 Assessment & Plan (1) Periprosthetic fracture around internal prosthetic right hip joint: Status post revision right total hip arthroplasty, femoral component, ORIF proximal femur -Vancomycin IV -DVT prophylaxis: SCDs, teds, Lovenox daily -Toe-touch nonweightbearing right lower extremity -PT/OT -Postoperative x-ray: Demonstrates a well aligned well fixed orthopedic prosthesis, anatomic alignment of the fracture site. -A.m. labs -DC planning Subjective Post Operative Progress Note Patient seen in PACU, comfortable, denies complaints, pain well controlled, no acute issues. Denies fevers, chills, nausea, shortness of breath and chest pain. Review of Systems Review of Systems: All systems reviewed & are unremarkable except as noted in HPI & below Constitutional: as per Subjective / HPI Physical Exam Physical Exam: RLE NVSI +EHL/FHL/TA/GS SILT grossly, +2 DP pulse, compartments soft NT, dressing cdi. Hemovac drain intact, abduction pillow in place Constitutional: WD/WN, vitals as above Results & Data Vital Signs (Past 12 Hours) Vital Signs Temp Pulse Pulse Resp BP Pulse Ox 10/06/19 20:00 37.2 C 93 H 16 122/63 94 10/06/19 19:50 95 H 17 135/70 94 10/06/19 19:40 102 H 16 139/58 L 97 10/06/19 19:30 37.0 C 103 H 15 118/74 96 10/06/19 14:24 36.8 C 85 18 129/71 93
--- NOTE | 2019-10-06 20:10 | Operative Report ---
Post Operative Report Pre & Post Diagnosis Operation Date: 10/06/19 07:00 Pre-Op Diagnosis: Slightly distracted vertical periprosthetic fracture with medial proximal femoral shaft which involves the lesser trochanter Post-Op Diagnosis: Slightly distracted vertical periprosthetic fracture with medial proximal femoral shaft which involves the lesser trochanter I identified the patient and participated in the time-out.: Yes Procedure Operation Date: 10/06/19 07:00 Actual Procedures p Right Total Hip Revision of femur and Open reduction of proximal femur(Right) - Pipo Drake DO Surgeon Pipo Drake, Gas Burner Operator Gilmar Tejada Estimated Blood Loss 550 Findings Consistent with Post-Op Diagnosis Fluids 1500 cc LR Specimens None Drains Hemovac drain 1 superficial to fascia, 1 deep to fascia Anesthesia Type General Complications none Disposition Disposition: Recovery Room Indications The patient is a 74-year-old male who has recent PSHx for right total hip arthroplasty on 09/19/19. The patients post-operative course was relatively and progressed well with in home physical therapy. On 10/02/19 the patient reports increased pain to hip right hip after using the bathroom and reported twisting injury when getting off the toilet. The patient reported severe pain that radiated down his leg and inability to ambulate. He was seen at [facility] ED, XRs at that time were negative for fracture. On 10/04/19 the patient was seen in the office with worsening pain and difficulty ambulating. The decision was made at that time to admit to [facility] for pain control and further evaluation/treatment. A CT was performed of the right hip which demonstrated a minimally displaced B2 proximal femur periprosthetic fracture. I have indicated the patient for revision right total hip arthroplasty, femoral component, ORIF proximal femur. The risks, benefits, complications alternatives of the procedure were explained to the patient in detail which include however not limited to infections, blood clots, acute blood loss, injury to surrounding nerves, bone, vessels, soft tissue, arthrofibrosis, chronic pain, malunion, nonunion, failure of the components, hip dislocation, leg length discrepancy, loss of limb and loss of life. Alternatives include no surgery which could result in worsening clinical pictures/symptoms, the patient and family members wish to proceed with surgical intervention at this time informed consent was obtained. Description of Procedure Following induction of adequate general anesthesia, the patient was transferred to the OR table and placed in lateral decubitus position with left hip down. The right hip was prepped and draped in the typical sterile fashion and a posterolateral/Stephany-Langenbeck incision was made inline with the previous incision. Subcutaneous tissue was sharply dissected. Electrocautery was utilized for hemostasis. The fascia was incised throughout the length of the wound and retracted with the Charnley retractor. Retained suture from previous surgery was removed. The bursa was taken down and the short external rotators and capsule were identified and tagged with two #1 Vicryl sutures. The short external rotators and capsule were divided from the posterior aspect of the femur using electrocautery. Both external rotators and posterior capsule were swept posterior and protected, along with protecting the sciatic nerve. Meticulous removal of intra-articular scar tissue was performed with bovie. The hip prosthesis was carefully dislocated by flexion and internal rotation in a controlled manner. The femoral head was removed from the trunion. Next, we turned our attention to the proximal femur and stem. I identified the fracture of the medial calcar extending inferiorly into the sub-troches region. The fracture fragment was minimally displaced. Carefully we removed all soft tissue debris and bone near the proximal aspect of the stem. The stem was grossly loose and easily removed without any additional bone loss. Next we turned our attention back to the fracture. The incision was extended distally to gain adequate exposure. The gluteus medius insertion was released and tendon was tagged. Soft tissue around the fracture was removed and the fracture site was cleared of all debris and retained blood clot. A single 1.8 mm Annalisa cable was placed distal to the fracture and secured into place with tensioner. The fracture fragment was easily reduced and held in place with 2 additional 1.8 mm Annalisa cables. All the cables were held in place with retensioning bit. The retensioning bits were locked and held in place temporarily. Access to the femoral canal was gained with single starter reamer on T-handle. Sequential reaming was performed to 15.5 mm and a depth of 175 mm. Good cortical bone chatter was appreciated. Next we performed sequential broaching of the proximal femur to a size 16 broach which provided good fit and fill of the proximal femur. The broach handle was removed and trial implant left in place. Next, exposure of the acetabulum was obtained. Additional scar tissue removal and debridement of the intra-articular soft tissue was performed. Acetabular cup and liner stability was assessed and found to be stable and without signs of loosening or wear. A 32-3 femoral head was placed onto the stem with extended neck and a trial reduction was carried out. The hip was found to be stable in all degrees of rotation with hip flexion and extension with no impingement and leg lengths were equal. Utilizing intraoperative C-arm fluoroscopy an x-ray was obtained at this time to assess positioning and fracture reduction. The stem surpassed the distal fracture site by at least 2 cortical diameter widths. The hip was dislocated once more, trial components were removed. Access to the proximal femur was once more gained and the final Size 16 [place] one piece stem with extended neck length was impacted into place until well seated with good fit and fill of the proximal femur. The fracture site was reassessed and found to be in good position and the cables were retensioned and locked into place sequentially and excess cables cut. A 32-3 mm femoral head was impacted into place and the hip was reduced. Range of motion was checked once again and found to be stable. Once more utilizing C-arm fluoroscopy stem positioning and fracture reduction was assessed and found to be well aligned well fixed with anatomic position. A Betadine soak was performed at this time for 3 minutes and the wound was copiously irrigated with sterile saline solution with bacitracin. The monae- incisional soft tissue was injected utilizing [place] ortho mix which includes a combination of Ropivicaine 0.5% 150mg, Bupivicaine 0.5%/Epinephrine 1:200,000 30ml, Toradol 30mg, Dexamethasone 4mg, Ketamine 10mg, Clonidine 100mcg and NSS 30ml solution. The external rotators, capsule were repaired to the greater trochanter through bone tunnels using #5 FiberWire. Primary repair of the gluteus muscles was performed with #5 FiberWire suture. Hemovac drain p laced deep and superficial to fascial layer. The fascia was closed using #1 Vicryl, subcutaneous tissue was closed using 2-0 Vicryl, and skin was closed with trini. Sterile dressings were applied which included Merle incisional VAC, drain sponges and foam tape. A abduction pillow was placed between the legs. The patient tolerated the procedure well and was transported to PACU in stable condition. Due to the complex nature of the procedure, the entire surgery was performed with the operational assistance of Gilmar Tejada PA-C. The assistant branch operations manager, under direct supervision, was involved in the actual performance of all aspects of the surgical procedure including patient positioning, hemostasis, tissue retraction, instrument management and wound closure. I attest to the content of the Intraoperative Record and any orders documented therein. Any exceptions are noted below.
[2019-10-06] MEDS ORDERED: VANCOMYCIN CONSULT ACTIVE PRN (20:19)
[2019-10-06] MEDS: SODIUM CHLORIDE 0.9% 1000ML 1,000 ML IV SCH (20:59)
[2019-10-06] MEDS ORDERED: DOCUSATE SODIUM 100 MG CAP PO SCH (21:00)
[2019-10-06] MEDS: METOPROLOL SUCC 25MG EXT REL TAB PO SCH (21:43)
[2019-10-06] MEDS: ROSUVASTATIN CALCIUM 20 MG TAB PO SCH (21:43)
[2019-10-06] MEDS: LOSARTAN POTASSIUM 50 MG TAB PO SCH (21:43)
[2019-10-06] MEDS: CYCLOBENZAPRINE HCL 10 MG TAB PO SCH (21:44)
[2019-10-07] MEDS: OXYCODONE HCL IR 5 MG TAB (IMMEDIATE RELEASE) PO PRN ×5 (00:09→20:11)
[2019-10-07] MEDS ORDERED: VANCOMYCIN HCL 1,750 MG in SODIUM CHLORIDE 0.9% 500 ML IV SCH (02:00)
[2019-10-07] MEDS: HYDROmorphone INJ 0.5 MG/0.5 ML SYR IV PRN (02:25)
[2019-10-07] MEDS: ACETAMINOPHEN 500 MG TAB PO PRN (04:56)
[2019-10-07 05:28] LABS: Basophils # (auto) 0.02 K/uL (0-0.2); Basophils % (auto) 0.1 %; Hematocrit (blood only) 37.1 % (42-52); Hemoglobin 11.4 g/dL (14.0-18.0); Immature Granulocytes # (auto) 0.12 K/uL (0.00-0.02); Immature Granulocytes % (auto) 0.7 %; Lymphocytes # (auto) 1.39 K/uL (1.2-3.4); Lymphocytes % (auto) 8.2 %; Mean Corpuscular Hemoglobin 28.9 pg (25-34); Mean Corpuscular Hgb Conc 30.7 g/dL (32-36); Mean Corpuscular Volume 93.9 fL (80-100); Monocytes % (auto) 7.1 %; Neutrophils # (auto) 14.16 K/uL (1.4-6.5); Neutrophils % (auto) 83.9 %; Platelet Count 263 K/uL (130-400); RDW Coefficient of Variation 14.3 % (11.5-14.5); Red Blood Count 3.95 M/uL (4.7-6.1); White Blood Count 16.89 K/uL (4.8-10.8)
[2019-10-07 05:55] LABS: BUN Creatinine Ratio 22.4 (10-20); Calcium 8.2 mg/dl (8.5-10.1); Creatinine Clr Calc Pharmacy 65.7 ml/min; Est GFR (African American) 64.5; Est GFR (Non-African American) 55.7
--- NOTE | 2019-10-07 06:08 | Communication Note ---
Date of Service: October 07, 2019 Made aware by RN of poor urine output. AM chemistry noted. Serum crea 1.27 from 1.03 (10/06) Serum potassium 5 AP Poor urine output, decreased renal function Borderline hyperkalemia Increase current IVF rate to 100 cc/h for now. Hold ARB. Follow renal function. Will relay to AM provider.
--- NOTE | 2019-10-07 07:45 | Orthopedic Progress Note ---
Date of Service October 07, 2019 Assessment & Plan (1) Periprosthetic fracture around internal prosthetic right hip joint: Status post revision right total hip arthroplasty, femoral component, ORIF proximal femur POD#1 -Vancomycin IV -DVT prophylaxis: SCDs, teds, Lovenox daily -Toe-touch nonweightbearing right lower extremity -PT/OT -Postoperative x-ray: Demonstrates a well aligned well fixed orthopedic prosthesis, anatomic alignment of the fracture site. -A.m. labs- hgb 11.4 -hmv drain output: 50/225 ml -DC planning: rehab/snf Subjective Post Operative Progress Note Patient seen sitting up in bed, comfortable, denies complaints, pain well controlled, no acute issues. Denies fevers, chills, nausea, shortness of breath and chest pain. Review of Systems Review of Systems: All systems reviewed & are unremarkable except as noted in HPI & below Constitutional: as per Subjective / HPI Physical Exam Physical Exam: RLE NVSI +EHL/FHL/TA/GS SILT grossly, +2 DP pulse, compartments soft NT, dressing cdi. Hmv drain intact Constitutional: WD/WN, vitals as above Results & Data Vital Signs (Past 12 Hours) Vital Signs Temp Pulse Pulse Pulse Resp BP Pulse Ox 10/07/19 07:22 36.7 C 88 15 119/73 91 10/07/19 06:15 95 10/07/19 04:09 36.6 C 80 16 115/68 96 10/06/19 23:17 36.5 C 79 16 115/71 96 10/06/19 22:32 36.7 C 85 18 119/73 97 10/06/19 21:25 36.5 C 91 H 18 138/74 99 10/06/19 20:45 36.6 C 85 12 117/70 95 10/06/19 20:15 36.5 C 92 H 14 114/70 94 10/06/19 20:10 94 H 19 120/64 94 10/06/19 20:00 37.2 C 93 H 16 122/63 94 10/06/19 19:50 95 H 17 135/70 94
[2019-10-07] MEDS: SODIUM CHLORIDE 0.9% 1000ML 1,000 ML IV SCH ×2 (07:55→18:29)
[2019-10-07] MEDS: CITALOPRAM 20 MG TAB PO SCH (09:17)
[2019-10-07] MEDS: CHOLECALCIFEROL 1,000 UNITS TAB PO SCH (09:17)
[2019-10-07] MEDS: PANTOprazole 40 MG TAB PO SCH (09:17)
[2019-10-07] MEDS: OXYBUTYNIN CHLORIDE 5 MG TAB PO SCH (09:17)
[2019-10-07] MEDS: ENOXAPARIN INJ 40 MG/0.4 ML SYR SQ SCH (09:18)
[2019-10-07] MEDS: INSULIN ASPART 100 UNITS/ML 3 ML PEN SC SCH ×4 (09:22→20:52)
--- NOTE | 2019-10-07 11:12 | Pharmacy Report ---
Pharmacy Glycemic Short Note 2 - Date of Service October 07, 2019 - Glycemic Short BSG Results (Last 24 hours): 10/06/19 10/06/19 10/06/19 12:22 19:34 21:41 Glucose POC Glucose 132 H 140 H 140 H 10/07/19 10/07/19 05:12 08:01 Glucose 139 H POC Glucose 158 H OUTPATIENT ANTIDIABETIC REGIMEN: * none- diet controlled ASSESSMENT: * 74 y/o M admitted for ORIF surgery performed yesterday. * He has been on Novolog q6h since HS on 10/04/19 and has not required any insulin for the past 3 days. He has also been NPO all along. * Diet was ordered yesterday with dinner, BSGs have trended up this AM. Fasting slightly above goal today which was covered by Novolog bolus with CF and CR using adjusted body weight and stress factor of 2. Plan to continue this today. PLAN FOR INPATIENT GLYCEMIC CONTROL: * Basal insulin: none * Bolus insulin: continue * NovoLog per scale ACHS or Q6hrs while NPO * Goal Range: Low 110 mg/dL - High 140 mg/dL * Correction Factor: 25 mg/dL/unit * Nutritional / Prandial insulin per carb ratio of 1 unit per 9 grams CHO consumed PLAN FOR DISCHARGE: * HbA1c = 7.1% on 08/24/19 * Patient's diabetes is diet controlled. At this time, would only recommend lifestyle changes (diet, exercise, and smoking cessation) for better control for a goal A1c less than 7%.
[2019-10-07] MEDS ORDERED: MAGNESIUM HYDROXIDE SUSP 30 ML UDC PO PRN (18:17)
[2019-10-07] MEDS: CYCLOBENZAPRINE HCL 10 MG TAB PO SCH (20:18)
[2019-10-07] MEDS: ROSUVASTATIN CALCIUM 20 MG TAB PO SCH (20:18)
[2019-10-07] MEDS: METOPROLOL SUCC 25MG EXT REL TAB PO SCH (20:18)
[2019-10-08] MEDS: OXYCODONE HCL IR 5 MG TAB (IMMEDIATE RELEASE) PO PRN ×5 (00:24→23:56)
[2019-10-08 06:48] LABS: Basophils # (auto) 0.02 K/uL (0-0.2); Basophils % (auto) 0.1 %; Eosinophils # (auto) 0.44 K/uL (0-0.5); Eosinophils % (auto) 2.5 %; Hematocrit (blood only) 32.3 % (42-52); Hemoglobin 10.4 g/dL (14.0-18.0); Immature Granulocytes # (auto) 0.11 K/uL (0.00-0.02); Immature Granulocytes % (auto) 0.6 %; Lymphocytes # (auto) 1.92 K/uL (1.2-3.4); Lymphocytes % (auto) 10.8 %; Mean Corpuscular Hemoglobin 29.3 pg (25-34); Mean Corpuscular Hgb Conc 32.2 g/dL (32-36); Mean Platelet Volume 9.5 fL (7.4-10.4); Monocytes # (auto) 2.25 K/uL (0.11-0.59); Monocytes % (auto) 12.7 %; Neutrophils % (auto) 73.3 %; Platelet Count 254 K/uL (130-400); RDW Coefficient of Variation 14.4 % (11.5-14.5); RDW Standard Deviation 47.7 fL (36.4-46.3); Red Blood Count 3.55 M/uL (4.7-6.1); White Blood Count 17.74 K/uL (4.8-10.8)
[2019-10-08 07:22] LABS: BUN Creatinine Ratio 24.6 (10-20); Calcium 8.2 mg/dl (8.5-10.1); Creatinine Clr Calc Pharmacy 60.5 ml/min; Est GFR (African American) 58.4; Est GFR (Non-African American) 50.4; Potassium 4.3 mmol/L (3.5-5.1)
[2019-10-08] MEDS: CITALOPRAM 20 MG TAB PO SCH (09:11)
[2019-10-08] MEDS: OXYBUTYNIN CHLORIDE 5 MG TAB PO SCH (09:12)
[2019-10-08] MEDS: PANTOprazole 40 MG TAB PO SCH (09:12)
[2019-10-08] MEDS: ENOXAPARIN INJ 40 MG/0.4 ML SYR SQ SCH (09:12)
[2019-10-08] MEDS: ACETAMINOPHEN 500 MG TAB PO PRN (09:13)
[2019-10-08] MEDS: CHOLECALCIFEROL 1,000 UNITS TAB PO SCH (09:13)
[2019-10-08] MEDS: INSULIN ASPART 100 UNITS/ML 3 ML PEN SC SCH ×4 (09:18→21:59)
[2019-10-08] MEDS: DOCUSATE SODIUM/SENNA 50/8.6MG TAB PO SCH (12:33)
--- NOTE | 2019-10-08 15:28 | Orthopedic Progress Note ---
Date of Service October 08, 2019 Assessment & Plan (1) Periprosthetic fracture around internal prosthetic right hip joint: Status post revision right total hip arthroplasty, femoral component, ORIF proximal femur POD#2 -Vancomycin IV -DVT prophylaxis: SCDs, teds, Lovenox daily -Toe-touch nonweightbearing right lower extremity -PT/OT -Postoperative x-ray: Demonstrates a well aligned well fixed orthopedic prosthesis, anatomic alignment of the fracture site. -hmv drain output: Has been decreasing. Will d/c today. -DC planning: rehab/snf. First choice is [facility] and second choice is [place]. [place] has a bed Thursday10.10.19. Earliest D/C will probably be 10.10.19. Subjective Post Operative Progress Note Patient seen sitting up in bed, comfortable, denies complaints, pain well controlled but having a slight increase in pain early this AM, no acute issues. Denies fevers, chills, nausea, shortness of breath and chest pain. Physical Exam Constitutional: WD/WN, vitals as above no acute distress Musculoskeletal: Hip: + surgical incision (right hip dressing C/D/I) and + surgical drain present (~140 cc total but only 30 cc over the past 2 shifts); no deformity, no skin erythema and no ecchymosis Neurologic: normal touch/pain/proprioception Psychiatric: A+Ox3, euthymic affect Speech: normal rate/rhythm/volume of speech Results & Data Vital Signs (Past 12 Hours) Vital Signs Temp Pulse Pulse Resp BP Pulse Ox 10/08/19 15:21 36.7 C 93 H 18 151/75 H 92 10/08/19 08:00 36.3 C L 91 H 20 126/65 92
--- NOTE | 2019-10-08 19:24 | Hospitalist Progress Note ---
Date of Service October 08, 2019 Assessment & Plan (1) Periprosthetic fracture around internal prosthetic right hip joint: CT R HIP: Slightly distracted vertical periprosthetic fracture within the medial proximal femoral shaft which involves the lesser trochanter. Negative DVT on Venous doppler study Postop day #2 remains Stable overall Hemoglobin 10, continue to monitor Lovenox for DVT prophylaxis (2) Diabetes mellitus, type II: A1c: 7.1 in 08/2019 Diet controlled -Insulin sliding scale per protocol -BSG's within acceptable range (3) CAD (coronary artery disease): No CP, SOB -Resume aspirin tomorrow if ok with Ortho -Continue metoprolol, statin (4) Hypertension: -Stable -Continue metoprolol, losartan (5) Hyperlipidemia: -Continue Crestor (6) Depression: -Continue Celexa DVT Prophylaxis -Lovenox subcutaneous daily Thank you for this consultation. We will follow the patient with you during their hospital stay. You can reach a member of the [facility] Hospitalist Team 11/05 via pager @ [phone]. Subjective ff up for s/p hip surgery seen resting in bed, comfortable in good spirits states he feels fine overall today had some pain with PT but well controlled no chest pain, dyspnea, palpitations (+) BM no other symptoms Review of Systems Review of Systems: All systems reviewed & are unremarkable except as noted in HPI & below Physical Exam Physical Exam: General- oriented x 3, not in distress, speaks in sentences with no effort or accessory muscle use Eyes- anicteric Neck- no JVD Lungs- clear breath sounds bilaterally Heart- normal rate, regular rhythm; no murmurs Abdomen- normal bowel sounds, nondistended, soft, nontender Extremities- right hip: dressing in place, no discharge, mild edema mild pretibial edema- right, no calf tenderness Neuro- alert, oriented x 3; no gross focal neurologic deficits Skin- warm & dry Results & Data Vital Signs (Past 12 Hours) Vital Signs Temp Pulse Pulse Resp BP Pulse Ox 10/08/19 15:21 36.7 C 93 H 18 151/75 H 92 10/08/19 08:00 36.3 C L 91 H 20 126/65 92
[2019-10-08] MEDS: CYCLOBENZAPRINE HCL 10 MG TAB PO SCH (22:01)
[2019-10-08] MEDS: ROSUVASTATIN CALCIUM 20 MG TAB PO SCH (22:01)
[2019-10-08] MEDS: METOPROLOL SUCC 25MG EXT REL TAB PO SCH (22:01)
[2019-10-09] MEDS: OXYCODONE HCL IR 5 MG TAB (IMMEDIATE RELEASE) PO PRN ×3 (06:31→23:55)
[2019-10-09 06:40] LABS: Basophils # (auto) 0.02 K/uL (0-0.2); Basophils % (auto) 0.1 %; Eosinophils # (auto) 0.57 K/uL (0-0.5); Eosinophils % (auto) 3.9 %; Hematocrit (blood only) 29.3 % (42-52); Hemoglobin 9.5 g/dL (14.0-18.0); Immature Granulocytes # (auto) 0.14 K/uL (0.00-0.02); Immature Granulocytes % (auto) 0.9 %; Lymphocytes # (auto) 2.14 K/uL (1.2-3.4); Lymphocytes % (auto) 14.5 %; Mean Corpuscular Hemoglobin 29.4 pg (25-34); Mean Corpuscular Hgb Conc 32.4 g/dL (32-36); Mean Corpuscular Volume 90.7 fL (80-100); Mean Platelet Volume 9.1 fL (7.4-10.4); Monocytes # (auto) 1.95 K/uL (0.11-0.59); Monocytes % (auto) 13.2 %; Neutrophils # (auto) 9.92 K/uL (1.4-6.5); Neutrophils % (auto) 67.4 %; Platelet Count 248 K/uL (130-400); RDW Coefficient of Variation 14.7 % (11.5-14.5); RDW Standard Deviation 48.2 fL (36.4-46.3); Red Blood Count 3.23 M/uL (4.7-6.1); White Blood Count 14.74 K/uL (4.8-10.8)
[2019-10-09 07:05] LABS: Calcium 8.5 mg/dl (8.5-10.1); Creatinine Clr Calc Pharmacy 73.2 ml/min; Est GFR (African American) 73.5; Est GFR (Non-African American) 63.4; Potassium 3.9 mmol/L (3.5-5.1)
--- NOTE | 2019-10-09 08:12 | Orthopedic Progress Note ---
Date of Service October 09, 2019 Assessment & Plan (1) Periprosthetic fracture around internal prosthetic right hip joint: Status post revision right total hip arthroplasty, femoral component, ORIF proximal femur POD#3 -Vancomycin IV -DVT prophylaxis: SCDs, teds, Lovenox daily -Toe-touch nonweightbearing right lower extremity -PT/OT -Postoperative x-ray: Demonstrates a well aligned well fixed orthopedic prosthesis, anatomic alignment of the fracture site. -DC planning: rehab/snf. First choice is [facility] and second choice is [place]. [place] has a bed Thursday10.10.19. Earliest D/C will probably be 10.10.19. No beds available at [facility] for Thursday as of 10.07.19. If he continues to do well, will plan for d/c tomorrow. Subjective Post Operative Progress Note Patient seen sitting up in bed, comfortable, denies complaints, pain better controlled today, no acute issues. Denies fevers, chills, nausea, shortness of breath and chest pain. States he had a good session of PT yesterday. Also had his first BM yesterday since being in the hospital. Physical Exam Constitutional: WD/WN, vitals as above no acute distress Musculoskeletal: Hip: + surgical incision (right hip dressing C/D/I); no de formity, no skin erythema, no ecchymosis and no surgical drain present (Hemovac removed yesterday) Neurologic: normal touch/pain/proprioception Psychiatric: A+Ox3, euthymic affect Speech: normal rate/rhythm/volume of speech Results & Data Vital Signs (Past 12 Hours) Vital Signs Temp Pulse Resp BP BP Pulse Ox 10/09/19 07:00 36.5 C 88 18 121/68 96 10/08/19 23:02 36.7 C 91 H 16 133/73 96 10/08/19 21:56 95 H 149/78 H
--- NOTE | 2019-10-09 08:44 | Pharmacy Report ---
Glycemic Control Progress Note - Date of Service October 09, 2019 - Scope Glycemic Pharmacist consulted for glycemic control to write orders per [facility] inpatient glycemic control protocol. - Objective Accuchecks BSG(last 24 hours):: 10/08/19 10/08/19 10/08/19 12:07 17:12 20:51 Glucose POC Glucose 128 H 133 H 166 H 10/09/19 10/09/19 05:59 08:13 Glucose 119 H POC Glucose 126 H - Recent Pertinent Medications The patient is currently receiving: * Basal insulin: Lantus -- units every -- hours * Correctional Insulin: Novolog Correction per scale ACHS Goal Range: Low 110 mg/dL - High 140 mg/dL Correction Factor: 25 mg/dL/unit * Prandial insulin: Per carb ratio of 1 unit per 7 grams CHO consumed - Outpatient Anti-Diabetic Meds diet controlled - Assessment & Plan ASSESSMENT: * See progress note from 10/04/19 for more background info, in short: * Pt receiving SQ basal bolus insulin regimen for hyperglycemia secondary to baseline DM (outpatient regimen on hold). Patient is POD 3 * Patient is currently receiving an average of 21 units of insulin per day * -- units of basal insulin * 21 units of prandial/correctional insulin * BSGs ranging 124 - 166 mg/dl over the past 24hrs * Changes needed to insulin regimen: * AM Fasting BSG = 126 mg/dl. This is in goal range for patient based on inpatient targets and co-morbidities. Therefore will continue to hold basal insulin * Post-prandial BSGs tend to rise throughout the day. Only one above 150 mg/dL. Tighten carbohydrate ratio slightly. * Total daily dose = ~25 units. PLAN FOR INPATIENT GLYCEMIC CONTROL: * Continuing correction factor of 25 mg/dl/unit * TIGHTENING carb ratio to 1 unit per 6 grams CHO consumed * Continuing goal range of Low 110 mg/dL - High 140 mg/dL RECOMMENDATIONS FOR DISCHARGE: * see progress note from 10/07/19 * Please note that the plan above was derived based on current level of insulin resistance and hospital stress. These recommendations are appropriate for inpatient admission only. Plan of care upon discharge will need to be reassessed to avoid potential outpatient hypo/hyperglycemia. Thank you.
[2019-10-09] MEDS: ENOXAPARIN INJ 40 MG/0.4 ML SYR SQ SCH (09:57)
[2019-10-09] MEDS: DOCUSATE SODIUM/SENNA 50/8.6MG TAB PO SCH (09:57)
[2019-10-09] MEDS: PANTOprazole 40 MG TAB PO SCH (09:57)
[2019-10-09] MEDS: OXYBUTYNIN CHLORIDE 5 MG TAB PO SCH (09:57)
[2019-10-09] MEDS: CITALOPRAM 20 MG TAB PO SCH (09:58)
[2019-10-09] MEDS: INSULIN ASPART 100 UNITS/ML 3 ML PEN SC SCH ×4 (09:59→22:11)
[2019-10-09] MEDS: CHOLECALCIFEROL 1,000 UNITS TAB PO SCH (09:59)
--- NOTE | 2019-10-09 16:07 | Hospitalist Progress Note ---
Date of Service October 09, 2019 Assessment & Plan (1) Post-operative state: (1) Periprosthetic fracture around internal prosthetic right hip joint: CT R HIP: Slightly distracted vertical periprosthetic fracture within the medial proximal femoral shaft which involves the lesser trochanter. Negative DVT on Venous doppler study Postop day # 3 remains Stable overall Hemoglobin 9.5, no symptoms on Lovenox for DVT prophylaxis (2) Diabetes mellitus, type II: A1c: 7.1 in 08/2019 Diet controlled -Insulin sliding scale per protocol -BSG's within acceptable range (3) CAD (coronary artery disease): - No CP, SOB - Resume aspirin if ok with Ortho - Continue metoprolol, statin (4) Hypertension: -Continue metoprolol, losartan (5) Hyperlipidemia: -Continue Crestor (6) Depression: -Continue Celexa (7) Leg edema - lasix 20mg po one dose monitor DVT Prophylaxis -Lovenox subcutaneous daily Thank you for this consultation. We will follow the patient with you during their hospital stay. You can reach a member of the [facility] Hospitalist Team 11/05 via pager @ [phone]. Subjective ff up s/p hip surgery seen resting in bed, comfortable pain is adequately controlled no chest pain, dyspnea, dizziness, palpitations no nausea no other symptoms Review of Systems Review of Systems: All systems reviewed & are unremarkable except as noted in HPI & below Physical Exam Physical Exam: General- oriented x 3, not in distress, speaks in sentences with no effort or accessory muscle use Eyes- anicteric Neck- no JVD Lungs- clear breath sounds, no crackles, no wheezing bilaterally Heart- normal rate, regular rhythm; no murmurs Abdomen- normal bowel sounds, nondistended, soft, nontender Extremities- (+) mild lower leg edema, no calf tenderness Neuro- alert, oriented x 3; no gross focal neurologic deficits Skin- warm & dry Results & Data Vital Signs (Past 12 Hours) Vital Signs Temp Pulse Resp BP Pulse Ox 10/09/19 15:26 36.3 C L 105 H 16 158/76 H 94 10/09/19 07:00 36.5 C 88 18 121/68 96 Laboratory Results Laboratory Results - last 24 hr 10/08/19 10/08/19 10/09/19 17:12 20:51 05:59 WBC 14.74 H RBC 3.23 L Hgb 9.5 L Hct 29.3 L MCV 90.7 MCH 29.4 MCHC 32.4 RDW Std Deviation 48.2 H RDW Coeff of Nazia 14.7 H Plt Count 248 MPV 9.1 Immature Gran % (Auto) 0.9 Neut % (Auto) 67.4 Lymph % (Auto) 14.5 [place] % (Auto) 13.2 Eos % (Auto) 3.9 Baso % (Auto) 0.1 Immature Gran # (Auto) 0.14 H Neut # (Auto) 9.92 H Lymph # (Auto) 2.14 [place] # (Auto) 1.95 H Eos # (Auto) 0.57 H Baso # (Auto) 0.02 Sodium Potassium Chloride Carbon Dioxide Anion Gap BUN Creatinine Est Cr Clr Drug Dosing Est GFR ( Amer) Est GFR (Non-Af Amer) BUN/Creatinine Ratio Glucose POC Glucose 133 H 166 H Calcium 10/09/19 10/09/19 10/09/19 05:59 08:13 12:26 WBC RBC Hgb Hct MCV MCH MCHC RDW Std Deviation RDW Coeff of Nazia Plt Count MPV Immature Gran % (Auto) Neut % (Auto) Lymph % (Auto) [place] % (Auto) Eos % (Auto) Baso % (Auto) Immature Gran # (Auto) Neut # (Auto) Lymph # (Auto) [place] # (Auto) Eos # (Auto) Baso # (Auto) Sodium 141 Potassium 3.9 Chloride 109 H Carbon Dioxide 26 Anion Gap 6.0 BUN 26 H Creatinine 1.14 Est Cr Clr Drug Dosing 73.2 Est GFR ( Amer) 73.5 Est GFR (Non-Af Amer) 63.4 BUN/Creatinine Ratio 23.0 H Glucose 119 H POC Glucose 126 H 121 H Calcium 8.5
[2019-10-09] MEDS: ACETAMINOPHEN 500 MG TAB PO PRN (16:33)
[2019-10-09] MEDS ORDERED: FUROSEMIDE 20 MG TAB PO ONE (16:50)
[2019-10-09] MEDS: METOPROLOL SUCC 25MG EXT REL TAB PO SCH (21:57)
[2019-10-09] MEDS: CYCLOBENZAPRINE HCL 10 MG TAB PO SCH (21:57)
[2019-10-09] MEDS: ROSUVASTATIN CALCIUM 20 MG TAB PO SCH (21:57)
[2019-10-10 05:59] LABS: Basophils # (auto) 0.04 K/uL (0-0.2); Basophils % (auto) 0.3 %; Eosinophils # (auto) 0.61 K/uL (0-0.5); Eosinophils % (auto) 4.1 %; Hematocrit (blood only) 31.1 % (42-52); Hemoglobin 10.1 g/dL (14.0-18.0); Immature Granulocytes % (auto) 1.4 %; Lymphocytes # (auto) 2.35 K/uL (1.2-3.4); Lymphocytes % (auto) 15.9 %; Mean Corpuscular Hemoglobin 29.6 pg (25-34); Mean Corpuscular Hgb Conc 32.5 g/dL (32-36); Mean Corpuscular Volume 91.2 fL (80-100); Mean Platelet Volume 8.6 fL (7.4-10.4); Monocytes # (auto) 1.63 K/uL (0.11-0.59); Neutrophils # (auto) 9.96 K/uL (1.4-6.5); Neutrophils % (auto) 67.3 %; Platelet Count 276 K/uL (130-400); RDW Coefficient of Variation 14.3 % (11.5-14.5); RDW Standard Deviation 47.8 fL (36.4-46.3); Red Blood Count 3.41 M/uL (4.7-6.1); White Blood Count 14.79 K/uL (4.8-10.8)
[2019-10-10 06:29] LABS: BUN Creatinine Ratio 20.8 (10-20); Calcium 8.5 mg/dl (8.5-10.1); Creatinine Clr Calc Pharmacy 71.9 ml/min; Est GFR (Non-African American) 62.1; Potassium 3.7 mmol/L (3.5-5.1)
[2019-10-10] MEDS: ACETAMINOPHEN 500 MG TAB PO PRN (06:38)
[2019-10-10] MEDS: OXYCODONE HCL IR 5 MG TAB (IMMEDIATE RELEASE) PO PRN (07:54)
[2019-10-10] MEDS: ENOXAPARIN INJ 40 MG/0.4 ML SYR SQ SCH (07:55)
[2019-10-10] MEDS: INSULIN ASPART 100 UNITS/ML 3 ML PEN SC SCH ×4 (07:55→21:21)
[2019-10-10] MEDS: PANTOprazole 40 MG TAB PO SCH (07:56)
[2019-10-10] MEDS: CHOLECALCIFEROL 1,000 UNITS TAB PO SCH (07:56)
[2019-10-10] MEDS: OXYBUTYNIN CHLORIDE 5 MG TAB PO SCH (07:56)
[2019-10-10] MEDS: CITALOPRAM 20 MG TAB PO SCH (07:57)
[2019-10-10] MEDS: DOCUSATE SODIUM/SENNA 50/8.6MG TAB PO SCH (07:57)
--- NOTE | 2019-10-10 08:43 | Orthopedic Progress Note ---
Date of Service October 10, 2019 Assessment & Plan (1) Periprosthetic fracture around internal prosthetic right hip joint: Status post revision right total hip arthroplasty, femoral component, ORIF proximal femur POD#5 -Vancomycin IV -DVT prophylaxis: SCDs, teds, Lovenox daily -Toe-touch nonweightbearing right lower extremity -PT/OT -Postoperative x-ray: Demonstrates a well aligned well fixed orthopedic prosthesis, anatomic alignment of the fracture site. -DC planning: rehab/snf. First choice is [facility] and second choice is [place]. [place] has a bed Thursday10.10.19. Earliest D/C will probably be 10.10.19. No beds available at [facility] for Thursday as of 10.07.19. Plan for d/c today to [place]. Subjective Post Operative Progress Note Patient seen sitting in bedside chair, comfortable, denies complaints, pain better controlled today, no acute issues. Denies fevers, chills, nausea, shortness of breath and chest pain. Doing well. Feeling good about leaving today. Physical Exam Constitutional: WD/WN, vitals as above no acute distress Musculoskeletal: Hip: + surgical incision (right hip dressing C/D/I--Prevena functioning); no deformity, no skin erythema, no ecchymosis and no surgical drain present (Hemovac removed yesterday) Neurologic: normal touch/pain/proprioception Psychiatric: A+Ox3, euthymic affect Speech: normal rate/rhythm/volume of speech Results & Data Vital Signs (Past 12 Hours) Vital Signs Temp Pulse Resp BP Pulse Ox 10/10/19 07:02 37.1 C 88 20 155/79 H 95 10/09/19 23:29 37.1 C 90 20 143/73 H 93
[2019-10-10] MEDS ORDERED: FUROSEMIDE 20 MG in SYRINGE 0 ML IV ONE (09:30)
--- NOTE | 2019-10-10 09:40 | Hospitalist Progress Note ---
Date of Service October 10, 2019 Assessment & Plan (1) Post-operative state: (1) Periprosthetic fracture around internal prosthetic right hip joint: - CT R HIP: Slightly distracted vertical periprosthetic fracture within the medial proximal femoral shaft which involves the lesser trochanter. - Postop day # 4 - activity and wound care orders as per ortho - pain control with bowel regimen - PT/OT - monitor H/H for acute blood loss anemia and transfuse blood products PRN - hgb stable at 10.1 (2) Diabetes mellitus, type II: -A1c: 7.1 in 08/2019 -Diet controlled -Insulin sliding scale per protocol while hospitalized -BSG's within acceptable range (3) CAD (coronary artery disease): - No CP, SOB - Resume aspirin when ok with Ortho - Continue metoprolol, statin (4) Hypertension: -BP controlled -Continue metoprolol, losartan (5) Hyperlipidemia: -Continue Crestor (6) Depression: -Continue Celexa (7) Leg edema -received Lasix 20mg yesterday, will give additional today -discharge on 20mg PO daily PRN edema -doppler negative for DVT -echo 08/2019: EF 55-59%, grade I diastolic dysfunction DVT Prophylaxis -Lovenox subcutaneous daily Supervising Physician Co-Signing Physician Notes Attending Addendum: care coordinated with JEFFY Carlin please refer to her notes for full details, I agree with her notes patient seen and examined, records reviewed by myself as well on exam, patient seen resting in chair, comfortable pain well controlled no other symptoms VS noted and reviewed oriented x 3 , not in distress, speaks in sentences with no effort nor accessory muscle use normal rate, regular rhythm, no murmurs clear breath sounds bilaterally non distended, soft, nontender grade 1 lower leg edema, erythema, warmth no neuro deficits WBC 14.7 Hg 10.1 Crea 1.16 ASSESSMENT AND PLAN s/p HIP SURGERY stable overall LEG EDEMA likely from poor mobilization additional Lasix today other diagnoses and plan of care as per JEFFY Lucas MD Subjective Patient seen and examined. Sitting up in the chair. Reports feeling well, pain well controlled. No chest pain or shortness of breath. Denies abdominal pain and nausea. Having bowel movements. Physical Exam Constitutional: no acute distress sitting up in chair Respiratory: normal respiratory effort, lungs clear to auscultation Cardiovascular: Rate/Rhythm: regular rate and regular rhythm Vessels: normal peripheral pulses Extremities: + edema (+2 pitting edema BLE, R > L ) Gastrointestinal (Abdomen): Inspection/Auscultation: normal bowel sounds Percussion/Palpation: abdomen soft; abdomen nontender Musculoskeletal: s/p right hip surgery, CSMs intact to RLE Psychiatric: Orientation: alert and oriented x 3 Results & Data Vital Signs (Past 12 Hours) Vital Signs Temp Pulse Resp BP Pulse Ox 10/10/19 07:02 37.1 C 88 20 155/79 H 95 10/09/19 23:29 37.1 C 90 20 143/73 H 93 Laboratory Results Short CBC 10/10/19 Range/Units 05:45 WBC 14.79 H (4.8-10.8) K/uL Hgb 10.1 L (14.0-18.0) g/dL Hct 31.1 L (42-52) % Plt Count 276 (130-400) K/uL BMP 10/10/19 05:45 Sodium 140 Potassium 3.7 Chloride 107 Carbon Dioxide 28 BUN 24 H Creatinine 1.16 Glucose 112 H Calcium 8.5
[2019-10-10] MEDS ORDERED: Nursing to Pharmacy Communication ONE (09:52)
[2019-10-10] MEDS ORDERED: FUROSEMIDE 20 MG TAB PO ONE (10:15)
[2019-10-10] MEDS: ASPIRIN 81 MG ECTAB PO SCH (18:28)
[2019-10-10] MEDS: CYCLOBENZAPRINE HCL 10 MG TAB PO SCH (21:34)
[2019-10-10] MEDS: ROSUVASTATIN CALCIUM 20 MG TAB PO SCH (21:35)
[2019-10-10] MEDS: METOPROLOL SUCC 25MG EXT REL TAB PO SCH (21:35)
[2019-10-11] MEDS: OXYCODONE HCL IR 5 MG TAB (IMMEDIATE RELEASE) PO PRN ×2 (04:01→10:52)
[2019-10-11 06:19] LABS: Basophils # (auto) 0.06 K/uL (0-0.2); Basophils % (auto) 0.4 %; Eosinophils # (auto) 0.59 K/uL (0-0.5); Eosinophils % (auto) 4.2 %; Hematocrit (blood only) 29.8 % (42-52); Hemoglobin 9.8 g/dL (14.0-18.0); Immature Granulocytes # (auto) 0.26 K/uL (0.00-0.02); Immature Granulocytes % (auto) 1.9 %; Lymphocytes # (auto) 2.66 K/uL (1.2-3.4); Mean Corpuscular Hemoglobin 29.7 pg (25-34); Mean Corpuscular Hgb Conc 32.9 g/dL (32-36); Mean Corpuscular Volume 90.3 fL (80-100); Mean Platelet Volume 8.8 fL (7.4-10.4); Monocytes # (auto) 1.08 K/uL (0.11-0.59); Monocytes % (auto) 7.7 %; Neutrophils # (auto) 9.34 K/uL (1.4-6.5); Neutrophils % (auto) 66.8 %; Platelet Count 301 K/uL (130-400); RDW Coefficient of Variation 14.3 % (11.5-14.5); White Blood Count 13.99 K/uL (4.8-10.8)
[2019-10-11 06:56] LABS: BUN Creatinine Ratio 19.1 (10-20); Calcium 8.9 mg/dl (8.5-10.1); Creatinine Clr Calc Pharmacy 73.8 ml/min; Est GFR (African American) 74.3; Est GFR (Non-African American) 64.1; Potassium 3.5 mmol/L (3.5-5.1)
[2019-10-11] MEDS: ASPIRIN 81 MG ECTAB PO SCH (09:02)
[2019-10-11] MEDS: PANTOprazole 40 MG TAB PO SCH (09:02)
[2019-10-11] MEDS: OXYBUTYNIN CHLORIDE 5 MG TAB PO SCH (09:03)
[2019-10-11] MEDS: CITALOPRAM 20 MG TAB PO SCH (09:03)
[2019-10-11] MEDS: DOCUSATE SODIUM/SENNA 50/8.6MG TAB PO SCH (09:04)
[2019-10-11] MEDS: ENOXAPARIN INJ 40 MG/0.4 ML SYR SQ SCH (09:04)
[2019-10-11] MEDS: CHOLECALCIFEROL 1,000 UNITS TAB PO SCH (09:04)
[2019-10-11] MEDS: INSULIN ASPART 100 UNITS/ML 3 ML PEN SC SCH (09:07)
[2019-10-11] MEDS: ACETAMINOPHEN 500 MG TAB PO PRN (09:14)
--- NOTE | 2019-10-11 09:44 | Hospitalist Progress Note ---
Date of Service October 11, 2019 Assessment & Plan (1) Post-operative state: (1) Periprosthetic fracture around internal prosthetic right hip joint: - CT R HIP: Slightly distracted vertical periprosthetic fracture within the medial proximal femoral shaft which involves the lesser trochanter. - Postop day # 5 - activity and wound care orders as per ortho - pain control with bowel regimen - PT/OT - monitor H/H for acute blood loss anemia and transfuse blood products PRN - hgb stable at 9.8 (2) Diabetes mellitus, type II: -A1c: 7.1 in 08/2019 -Diet controlled -Insulin sliding scale per protocol while hospitalized -BSG's within acceptable range (3) CAD (coronary artery disease): - No CP, SOB - Resume aspirin when ok with Ortho - Continue metoprolol, statin (4) Hypertension: -BP controlled -Continue metoprolol, losartan (5) Hyperlipidemia: -Continue Crestor (6) Depression: -Continue Celexa (7) Leg edema -received Lasix 20mg 10/09 and 10/10 -Likely dependent edema from immobilization -discharge on 20mg PO daily PRN edema -doppler negative for DVT -echo 08/2019: EF 55-59%, grade I diastolic dysfunction DVT Prophylaxis -Lovenox subcutaneous daily Supervising Physician Co-Signing Physician Notes 10/13/19 care coordinated with JEFFY Carlin Chart reviewed agree with her notes above patient already left he hospital when I arrived in his room Stew Lucas MD Subjective Patient seen and examined. Sitting up in the chair. Offers no complaints, reports pain is well controlled. Denies chest pain or shortness of breath. No abdominal pain or nausea. Having bowel movements without difficulty. Physical Exam Constitutional: no acute distress Sitting up in the chair Respiratory: normal respiratory effort, lungs clear to auscultation Cardiovascular: Rate/Rhythm: regular rate and regular rhythm Vessels: normal peripheral pulses Extremities: + edema (+1-2 pitting edema BLE, R>L) Musculoskeletal: S/p right hip surgery, CSM checks intact to RLE Psychiatric: Orientation: alert and oriented x 3 Results & Data Vital Signs (Past 12 Hours) Vital Signs Temp Pulse Resp BP Pulse Ox 10/11/19 07:45 36.7 C 87 16 148/73 H 94 10/10/19 23:04 36.6 C 92 H 16 147/78 H 94 Laboratory Results Short CBC 10/11/19 Range/Units 06:07 WBC 13.99 H (4.8-10.8) K/uL Hgb 9.8 L (14.0-18.0) g/dL Hct 29.8 L (42-52) % Plt Count 301 (130-400) K/uL BMP 10/11/19 06:07 Sodium 139 Potassium 3.5 Chloride 106 Carbon Dioxide 27 BUN 22 H Creatinine 1.13 Glucose 106 H Calcium 8.9
--- NOTE | 2019-10-16 10:13 | Discharge Summary ---
Date of Service October 11, 2019 Principal Diagnosis Revision right total hip replacement, femoral component, ORIF proximal femur Discharge Exam RLE NVSI +EHL/FHL/TA/GS SILT grossly, +2 DP pulse, compartments soft NT, dressing cdi. Constitutional WD/WN, vitals as above Discharge Data Allergies Allergy/AdvReac Type Severity Reaction Status Date / Time amoxicillin Allergy Unknown HIVES, Verified 10/02/19 13:00 THROAT/TONGUE SWELLING atorvastatin [From Lipitor] AdvReac Unknown MUSCLE Verified 10/02/19 13:00 ACHES Consultations 10/04/19 21:47 Consult Hospitalist Routine 10/06/19 20:19 Consult Case Management - Discharge Planning Routine Procedures Performed Operation Date: 10/06/19 07:00 Actual Procedures p Right Total Hip Revision of femur and Open reduction of proximal femur(Right) - Pipo Barahona DO Ordered Studies 10/04/19 11:14 MR lumbar spine wo con Stat 10/04/19 11:21 CT hip RT wo con Stat 10/05/19 09:12 US venous doppler LE BI Stat 10/06/19 07:00 FL fluoroscopy <1hr Routine FL hip RT 1V Routine Hospital Course (1) Periprosthetic fracture around internal prosthetic right hip joint: The patient is a 74-year-old male who has recent PSHx for right total hip arthroplasty on 09/19/19. The patients post-operative course was relatively and progressed well with in home physical therapy. On 10/02/19 the patient reports increased pain to hip right hip after using the bathroom and reported twisting injury when getting off the toilet. The patient reported severe pain that radiated down his leg and inability to ambulate. He was seen at [facility] ED, XRs at that time were negative for fracture. On 10/04/19 the patient was seen in the office with worsening pain and difficulty ambulating. The decision was made at that time to admit to [facility] for pain control and further evaluation/treatment. A CT was performed of the right hip which demonstrated a minimally displaced B2 proximal femur periprosthetic fracture. I have indicated the patient for revision right total hip arthroplasty, femoral component, ORIF proximal femur. The risks, benefits, complications alternatives of the procedure were explained to the patient in detail which include however not limited to infections, blood clots, acute blood loss, injury to surrounding nerves, bone, vessels, soft tissue, arthrofibrosis, chronic pain, malunion, nonunion, failure of the components, hip dislocation, leg length discrepancy, loss of limb and loss of life. Alternatives include no surgery which could result in worsening clinical pictures/symptoms, the patient and family members wish to proceed with surgical intervention at this time informed consent was obtained. Hospital Course: On 10/06/19 the patient was taken to the operating room, adequate anesthesia administered and underwent a revision right total hip arthroplasty, femoral component, ORIF proximal femur. The patient tolerated the procedure well and was taken to the PACU in stable condition. Post-operatively the patient was started on a DVT ppx medication and given appropriate IV antibiotics. Consults were placed to medical hospitalist, physical therapy, occupational therapy and case management. POD#1, the patients pain was well controlled, no acute issues overnight, labs drawn. -Vancomycin IV -DVT prophylaxis: SCDs, teds, Lovenox daily -Toe-touch nonweightbearing right lower extremity -PT/OT -Postoperative x-ray: Demonstrates a well aligned well fixed orthopedic prosthesis, anatomic alignment of the fracture site. -A.m. labs- hgb 11.4 -hmv drain output: 50/225 ml -DC planning: rehab/snf POD#2 -Vancomycin IV -DVT prophylaxis: SCDs, teds, Lovenox daily -Toe-touch nonweightbearing right lower extremity -PT/OT -Postoperative x-ray: Demonstrates a well aligned well fixed orthopedic prosthesis, anatomic alignment of the fracture site. -hmv drain output: Has been decreasing. Will d/c today. -DC planning: rehab/snf. [facility] and second choice is [facility]. [facility] has a bed Thursday10.10.19. Earliest D/C will probably be 10.10.19. -hgb 10.4 -Dressing changed, incision c/d/i. POD#3 -Vancomycin IV -DVT prophylaxis: SCDs, teds, Lovenox daily -Toe-touch nonweightbearing right lower extremity -PT/OT -Postoperative x-ray: Demonstrates a well aligned well fixed orthopedic prosthesis, anatomic alignment of the fracture site. -DC planning: rehab/snf. First choice is [facility] and second choice is [facility]. [facility] has a bed Thursday10.10.19. Earliest D/C will probably be 10.10.19. No beds available at [facility] for Thursday as of 10.07.19. If he continues to do well, will plan for d/c tomorrow. -hgb 9.5 POD#4 -Vancomycin IV -DVT prophylaxis: SCDs, teds, Lovenox daily -Toe-touch nonweightbearing right lower extremity -PT/OT -Postoperative x-ray: Demonstrates a well aligned well fixed orthopedic prosthesis, anatomic alignment of the fracture site. -DC planning: rehab/snf. First choice is [facility] and second choice is [facility]. [facility] has a bed Thursday10.10.19. Earliest D/C will probably be 10.10.19. No beds available at [facility] for Thursday as of 10.07.19. Plan for d/c today to [facility]. -hgb 10.1 POD#5 -hgb 9.8 The patients hospital stay was relatively uneventful and they were deemed stable by the orthopedic team and consultants to be discharged to rehab facility on 10/11/19. Discharge Instructions: Upon discharge the patient is to maintain toe touch non weight bearing through their operative extremity. They were instructed to keep the incision clean and dry at all times. The patient may shower but should not submerge the incision, avoid bathing, pools and hot tubes. The patient was given a script for pain medication and should take as instructed. The patient was given a script for DVT ppx Lovenox 40mg daily and should take as directed. The patient was instructed to not drive or travel for long distances until cleared to do so. If the patient develops any symptoms of fevers, chills, nausea, vomiting, increased redness, swelling, pain or drainage from the surgical site, they should notify the office and/or proceed to the nearest emergency room. The patient should follow up in 10-14 days after surgery for their routine post-operative follow-up appointment and should call the office to confirm the date and time. Total Time Total Time Spent Total Time Spent (In Minutes): >60 minutes Discharge Plan Discharge Items Patient Disposition: [facility] Reason For Visit: UNCONTROLLED PAIN Discharge Diagnosis: Slightly distracted vertical periprosthetic fracture with medial proximal femoral shaft which involves the lesser trochanter Activity: Per Instructions section Weightbearing: Right toe touch Non-emergency contact: Surgeon and Specialist Call non-emergency contact if: your pain is not controlled, your pain is worsening and your temperature is above 101 Follow-up/Referrals: Chelsea Nash DO [Primary Care Provider] - Diet: Regular Addtl Attending Provider Instructions: ACTIVITY RECOMMENDATIONS: SELF CARE INSTRUCTIONS AFTER TOTAL HIP REPLACEMENT Until the incision and soft tissues around your hip have healed, there is a possibility that the hip prosthesis could dislocate. A. Observe the following precautions to prevent dislocation: 1. Don't bend your hip greater than 90 degrees. 2. Avoid crossing your legs or ankles while standing or lying. 3. Sit with your feet placed 6 inches apart. 4. When sitting, keep your knees below your hips. Sit on a firm surface, avoid deep, soft chairs and couches. Use an elevated toilet seat in the bathroom. 5. Don't bend over at the waist. Use a long handled shoehorn and a sock aid to help you put on your shoes and socks. A aircraft engineer can help you pickling drum operator objects that are too high or too low to reach. 6. Keep car riding to a minimum for at least one month after surgery. 7. YOU WILL BE TOE TOUCH WEIGHTBEARING UNTIL DR. BARAHONA HAS DETERMINED YOUR HIP IS HEALED AND YOU CAN BEGIN WEIGHTBEARING TOLERATED ON THE RIGHT LEG. B. Your balance may be shaky for a while. Use crutches or a walker until directed by your doctor. C. Use hand rails when walking on stairs. D. Wear low heeled shoes with non-slip soles. E. Be sure that your floors are free of things that could trip you - throw rugs, electrical cords, small objects. Avoid wet and waxed floors, especially with crutches and canes. F. Try to walk several times a day with rest periods between. G. Continue with all the exercises taught to you in the hospital. Again, make walking a part of your daily routine. H. It is okay to shower if minimal to no drainage from incision. No baths. Do not soak wound. I. Physical Therapy as instructed by your Physician. J. Prevena dressing: You have a Prevena dressing on your surgical wound. It wi ll remain in place for 7 days from surgery. You will be provided with a booklet with the do's and don'ts with the dressing in place. After 7 days, the dressing may be removed. If there is drainage from the surgical incision, you may cover the wound with dry dressings SPECIAL CARE INSTRUCTIONS: VERY IMPORTANT TO READ AND REVIEW A. You may still be at risk for phlebitis and blood clots. 1. Wear surgical stockings (CHRISTO hose) for one month, 20 hours daily, after surgery to improve circulation and reduce swelling. 2. Take Lovenox (blood thinning medications), as directed by your doctor. 3. Have a pro-time (blood test) drawn according to your doctor's instructions. B. We encourage and will assist you in choosing a home-health agency of your choice. Home health nurses and therapists will monitor your temperature, wound healing and progress in exercise and walking. Home health nurses may also draw the blood for the pro-time test. They may instruct you in decreasing or increasing the amount of Coumadin you take. C. You must take antibiotics before having dental work, bladder, bowel and other surgery. Your doctor will provide you with a permanent card to carry describing precautions. D. Call [facility] if you have a temperature of 101 or greater, redness or swelling around the incision, cloudy drainage from incision, or sudden increase in pain in your hip, not relieved by your regular pain medication. E. Please call the office at if you have any concerns or questions about your operation or recovery. FOLLOW UP VISIT: If appointment is not already scheduled: Please call [facility] to make a follow-up appointment for One month after your surgery at . HOSPITALIST INSTRUCTIONS: Patient was given doses of IV Lasix for lower extremity edema. Please monitor for ongoing leg edema. Lasix PRN is prescribed at discharge. Pending Studies at Discharge: No Stand-Alone Forms: My [facility] [employer] Skilled Items Patient informed of condition?: Yes DNR: No Discharge Level of Care: Acute rehab Communicable Disease: No Discharge Prognosis: Improving Lines: None Urinary Catheter: No Medications and DC Order Prescriptions: New enoxaparin 40 mg/0.4 mL Syringe 40 mg subcut Q24H 14 Days Qty: 5.6 RF: 0 acetaminophen 500 mg Tablet 1,000 mg PO Q8 Qty: 100 RF: 0 oxycodone 5 mg Tablet 5 - 10 mg PO Q4H PRN (Reason: pain) Qty: 30 RF: 0 furosemide [Lasix] 20 mg tablet 20 mg PO DAILY PRN (Reason: edema) Qty: 14 RF: 0 Continued citalopram [Celexa] 10 mg Tablet 10 mg PO QAM RF: 0 calcium polycarbophil [Fiber-Tabs] 625 mg Tablet 1,250 mg PO QPM RF: 0 metoprolol succinate [Toprol XL] 25 mg Tablet Extended Release 24 Hr 25 mg PO QPM RF: 0 oxybutynin chloride 5 mg Tablet 5 mg PO QAM RF: 0 losartan 100 mg Tablet 100 mg PO QPM RF: 0 rosuvastatin 20 mg Tablet 20 mg PO QPM RF: 0 Dexilant 60 mg Capsule,Biphase Delayed Releas 60 mg PO QAM RF: 0 cyclobenzaprine 10 mg Tablet 10 mg PO HS RF: 0 aspirin [Ecotrin Low Strength] 81 mg Tablet,Delayed Release (Dr/Ec) 81 mg PO BID Qty: 56 RF: 0 celecoxib 200 mg capsule 200 mg PO BID RF: 0 docusate sodium [Colace] 100 mg Capsule 100 mg PO HS RF: 0 Discontinued acetaminophen [Tylenol Extra Strength] 500 mg Tablet 1,000 mg PO Q8 PRN (Reason: pain) Qty: 90 RF: 0 oxycodone 5 mg tablet 10 mg PO Q4H PRN (Reason: pain) RF: 0 Discharge Orders: Discharge Order (Routine); Ordered 10/10/19 Ordered By: Reginald Bolanos/Other Patient Handouts: Diabetes Accident Investigator Complications, Hyperglycemia, Diabetes Resources, Diabetes Type 2 Coping, Blood Sugar Check, Diabetes Type 2 Oral Meds, Insulin Types, Diabetes Healthy Meals, Diabetes Carbs Admission Data Admit Date/Time: 10/04/19 10:48 Attending Provider: Pipo Barahona Admit Provider: Pipo Barahona Primary Care Provider: Chelsea Nash Other Providers: [facility] ; Stew Lucas ; Efrain Lee Other Interventions: Discharge Summary Assessment (RN) Last Done: 10/11/19 10:25 DC Date/Time DO NOT enter until pt leaves facility: 10/11/19 11:23
== END 2019-10-11 11:23 | DRG 470 ==
LOC: 3N 10:48